=== PATIENT | male | born 1975 | race Caucasian/White ===

== ENCOUNTER 2020-11-20 12:38 | Outpatient (REF) | payer OTHER, SELFPAY ==
[2020-11-20 15:11] LABS: TSH reflex Free T4 1.49 uIU/mL (0.32-4.0)
== END 2020-11-20 12:39 | disposition home or self-care (01) ==
LOC: HO.HMGCLDS 12:38
PROVIDERS: PCP Nurse Practitioner Family; Visit Provider Nurse Practitioner Family
DX: E03.9 Hypothyroidism, unspecified (principal)
CPT/HCPCS: 36415; 84443

== ENCOUNTER 2021-01-31 11:22 | Outpatient (REF) | payer OTHER, SELFPAY ==
--- NOTE | ~2021-01-31 | XR_ITS ---
EXAMINATION: XR LUMBOSACRAL SPINE CLINICAL INFORMATION: Lower back pain. COMPARISON: Lumbar spine radiographs dated 02/15/2012. TECHNIQUE: 3 views of the lumbosacral spine. FINDINGS: The lumbar lordosis is maintained. Grade 1 anterolisthesis of L5 on S1 with chronic bilateral pars defects, unchanged. No loss of vertebral body or intervertebral disc height. No lytic or blastic osseous lesion. Unremarkable prevertebral soft tissues. XR/XR lumbar spine 2-3V IMPRESSION: Grade 1 anterolisthesis of L5 on S1 with chronic bilateral pars defects.
== END 2021-01-31 11:23 | disposition home or self-care (01) ==
LOC: HO.XRAY 11:22
PROVIDERS: PCP Nurse Practitioner Family; Visit Provider Nurse Practitioner Family
DX: M54.5 Low back pain (principal)
CPT/HCPCS: 72100

== ENCOUNTER 2021-03-24 13:00 | Outpatient (RCR) | payer OTHER, SELFPAY ==
--- NOTE | 2021-03-09 12:46 | MHC.PT.EP ---
[facility] [place] Office [place] Office [place] Office [address] [phone] F: [phone] F: [phone] F: [phone] F: [phone] Physical Therapy Plan of Care Date of Evaluation: Date of Surgery: n/a Diagnosis: low back pain Assessment: Patient is a 46 year old R handed male who presents with s/s consistent with low back pain. 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 Patient past medical history includes is fairly unremarkable. Current impairments include pain, ROM, flexibility, strength, activity tolerance and functional mobility. Functional limitations include decreased ability to walk, stand, transfer, negotiate stairs, and perform weight bearing activities.. Patient is motivated with good rehab potential. Skilled PT will address impairments and functional limitations in order to achieve goals. Frequency and Duration: The patient will be seen 1x/week for 5 weeks Short Term Goals: I with HEP - 2 weeks Max pain with driving /10 - 3 weeks Retirement Goals: Able to walk/sit/drive pain free - 5 weeks Oswestry 4% or less - 5 weeks Hip strength 4+/5 grossly, 90/90 lacking 20 or less b/l - 5 weeks Treatment Plan: Modalities to reduce pain, spasms and effusion. Manual therapy to restore motion and function. Therapeutic exercise to improve strength and flexibility. Neuromuscular re-education for posture and balance. Therapeutic activities to return to functional activities of daily living. Electronically signed by: Mahendra Patrick PT Please sign and return to therapist. Thank you for your referral.
--- NOTE | 2021-07-08 10:43 | MHC.PT.DC ---
[facility] [place] Office [place] Office [place] Office [address] 140 [facility] [phone] F: [phone] F: [phone] F: [phone] F: [phone] Physical Therapy Discharge Report Diagnosis: low back pain Date of Surgery: n/a Date of Evaluation: 03/09/21 Date of Discharge: 03/24/21 Treatments to Date: 2 Cancellations to Date: 0 No Shows to Date: Discharge Status: Patient Elected to Stop Discharge Summary: Pt elected not to continue with skilled PT. Electronically signed by: Mahendra [place] PT Please sign and return to therapist. Thank you for your referral.
== END 2021-07-08 10:44 | disposition home or self-care (01) ==
LOC: HO.PTCHIC 13:00
PROVIDERS: PCP Nurse Practitioner Family; Visit Provider Nurse Practitioner Family
DX: M54.50 Low back pain, unspecified (principal)
CPT/HCPCS: 97110; 97140; 97161

== ENCOUNTER 2021-04-06 19:11 | Outpatient (REF) | payer OTHER, SELFPAY ==
--- NOTE | ~2021-04-06 | MR_ITS ---
EXAMINATION: MR HIP WITHOUT CONTRAST, LEFT CLINICAL INFORMATION: Left hip pain radiating to gluteus. Lower back pain. COMPARISON: None TECHNIQUE: MRI of the left hip was obtained using routine sequences on a high-field magnet. FINDINGS: ACETABULAR LABRUM: Linear fluid signal extending through the base of the anterosuperior labrum (sagittal image 15/26), consistent with nondisplaced undersurface tearing. Mild fraying through the articular surface of the lateral labrum. ARTICULAR CARTILAGE/BONE: Prominent articular cartilage thinning at the superior joint space with areas of probable full-thickness loss and fissuring as well as underlying acetabular subchondral cystic change. Marginal osteophytes. No stress reaction, fracture, or avascular necrosis. The acetabular depth is within normal limits. MUSCLES/TENDONS: Intact. JOINT FLUID/BURSA: Within normal limits. INTRAPELVIC STRUCTURES: Unremarkable. MR/MR hip LT wo con IMPRESSION: 1. Nondisplaced undersurface tear of the anterosuperior labrum. Irregular fraying along the articular surface of the lateral labrum. 2. Mild to moderate left hip osteoarthritis.
== END 2021-04-06 19:12 | disposition home or self-care (01) ==
LOC: HO.MRI 19:11
PROVIDERS: Visit Provider Nurse Practitioner Family
DX: M25.552 Pain in left hip (principal)
CPT/HCPCS: 73721

== ENCOUNTER 2021-05-12 13:38 | Outpatient (REF) | payer OTHER, SELFPAY | END 2021-05-12 13:39 | disposition home or self-care (01) | LOC: HO.HMGCLDS 13:38 | PROVIDERS: Visit Provider Internal Medicine | DX: Z20.822 Contact with and (suspected) exposure to COVID-19 (principal) | CPT/HCPCS: C9803; U0003; U0005 ==

== ENCOUNTER 2021-07-25 08:09 | Outpatient (REF) | payer OTHER, SELFPAY | END 2021-07-25 08:10 | disposition home or self-care (01) | LOC: HO.HOSX 08:09 | PROVIDERS: Visit Provider Orthopaedic Surgery | DX: Z13.89 Encounter for screening for other disorder (principal) ==

== ENCOUNTER 2022-10-30 09:58 | Outpatient (REF) | payer OTHER, SELFPAY ==
[2022-10-30 11:06] LABS: MANUAL DIFF FLAG NO
[2022-10-30 11:15] LABS: Appearance Urine Clear; Color Urine Yellow; Glucose Urine UA Negative (Negative); Leukocyte Esterase Urine Negative (Negative); Nitrite Urine Negative (Negative); PH 6.5 (5.0-9.0); Urine Blood Negative (Negative); Urine Ketones Negative (Negative); Urine Protein Negative (Neg-Trace)
[2022-10-30 11:20] LABS: Basophils Absolute Auto 0.1 X10*3/uL (0.0-0.2); Basophils Percent Auto 1.4 % (0-2); Eosinophils Absolute Auto 0.2 X10*3/uL (0.0-0.4); Eosinophils Percent Auto 3.8 % (0-4); Hematocrit 45.7 % (42.0-52.0); Hemoglobin 15.9 g/dl (14.0-18.0); Imm Gran Abs Auto 0.04 X10*3/uL (0.00-0.03); Imm Gran Pct Auto 0.7 % (0.0-0.4); Lymphocytes Absolute Auto 2.3 X10*3/uL (1.2-4.9); Lymphocytes Percent Auto 39.9 % (20-40); Mean Corpuscular HGB Conc 34.8 g/dl (31.0-36.0); Mean Corpuscular Hemoglobin 31.1 pg (27.0-33.0); Mean Corpuscular Volume 89.3 fL (80.0-98.0); Mean Platelet Volume 9.5 fL (9.4-12.4); Monocytes Absolute Auto 0.5 X10*3/uL (0.1-1.2); Monocytes Percent Auto 7.7 % (2-11); Neutrophils Absolute Auto 2.7 x10*3/uL (2.0-8.3); Neutrophils Percent Auto 46.5 % (45-73); Platelet Count 274 X10*3/uL (160-400); Red Blood Count 5.12 X10*6/uL (4.60-5.80); Red Cell Distribution Width 11.5 % (11.0-16.0); White Blood Count 5.8 X10*3/uL (4.8-10.8)
[2022-10-30 11:51] LABS: Alanine Aminotransferase 37 U/L (0-40); Albumin Level 4.3 g/dL (3.5-5.0); Alkaline Phosphatase 97 U/L (39-117); Anion Gap 12 (12-20); Aspartate Amino Transferase 27 U/L (5-37); Bilirubin Total 0.5 mg/dL (0.0-1.0); Blood Urea Nitrogen 13 mg/dL (9-16); Calcium 9.7 mg/dL (8.4-10.2); Carbon Dioxide 30 mmol/L (22-29); Chloride 104 mmol/L (96-108); Cholesterol 194 mg/dL; Estimated Glomerular Filt Rate > 60; Glucose Fasting 87 mg/dL (60-99); HDL Cholesterol 38 mg/dL; LDL Cholesterol Calculated 136 mg/dl; Sodium 142 mmol/L (135-145); Total Protein 7.7 g/dL (6.5-8.0); Triglycerides 103 mg/dL
== END 2022-10-30 09:59 | disposition home or self-care (01) ==
LOC: HO.HMGCLDS 09:58
PROVIDERS: PCP Nurse Practitioner Family; Visit Provider Nurse Practitioner Family
DX: Z00.00 Encounter for general adult medical examination without abnormal findings (principal); E03.9 Hypothyroidism, unspecified
CPT/HCPCS: 36415; 80053; 80061; 81003; 84443; 85025

== ENCOUNTER 2023-01-04 15:33 | Emergency (ER) | payer OTHER, SELFPAY ==
--- NOTE | ~2023-01-04 | XR_ITS ---
EXAMINATION: XR CHEST 2 VIEW CLINICAL INFORMATION: Chest pain COMPARISON: None TECHNIQUE: PA and lateral views of the chest obtained. FINDINGS: The lungs are clear. There are no pleural effusions. The cardiomediastinal silhouette is normal. No rib fracture or pneumothorax is detected. XR/XR chest 2V IMPRESSION: No acute cardiopulmonary disease.
--- NOTE | 2023-01-04 15:35 | ECG_ITS ---
Test Reason : PAIN Blood Pressure : / mmHG Vent. Rate : 076 BPM Atrial Rate : 076 BPM P-R Int : 132 ms QRS Dur : 082 ms QT Int : 362 ms P-R-T Axes : 073 040 037 degrees QTc Int : 407 ms Normal sinus rhythm Possible Left atrial enlargement Borderline ECG No previous ECGs available Referred By: Kaiden Campbell Electronically Signed By:KORY OKEEFE
--- NOTE | 2023-01-04 15:46 | ED_ITS ---
HPI - General Adult General Chief complaint: Chest Pain Stated complaint: chest pain Time Seen by Provider: 01/04/23 16:08 Source: patient Mode of arrival: ambulatory Limitations: no limitations History of Present Illness HPI narrative: Patient is a 47-year-old male presents emergency department for evaluation of c hest pain. Onset of pain was approximately 2 days ago while he was sitting down. It is localized to the left anterior chest without radiation. He is unable to describe the quality of the pain. He does state that it is exacerbated with particular movements of the left arm as well as his torso. He has had some improvement in his symptoms with the use of Motrin. He denies history of similar pain in the past. Denies fevers, chills, URI symptoms, cough, shortness of breath, dizziness, neck pain, nausea, vomiting, abdominal pain, numbness or tingling of the extremities. Denies any personal history of DVT/PE, history of malignancy, recent lower extremity redness/pain/swelling, family history of [place] or sudden cardiac at a young age. Related Data Previous Rx's Medication Instructions Recorded levothyroxine 112 mcg tablet 112 mcg PO DAILY #90 tabs 12/01/22 Allergies Allergy/AdvReac Type Severity Reaction Status Date / Time seafood Allergy Unknown Angioedema Verified 01/04/23 15:47 apple Allergy Angioedema Verified 01/04/23 15:47 avocado Allergy Angioedema Verified 01/04/23 15:47 Review of Systems Review of Systems: Constitutional : No Weight loss, No Fever, No Chills ENT/Mouth :? No sore throat, No Rhinorrhea Eyes: No Eye Pain, No Swelling Cardiovascular : pos Chest Pain, no SOB, no Dyspnea on Exertion, No Orthopnea, No Edema, No Palpitations Respiratory : No Cough, No Sputum Gastrointestinal : No Nausea, No Vomiting, No Diarrhea, No abdominal Pain, No Hematochezia, No Melena Genitourinary : No Dysuria, No Urinary Frequency Musculoskeletal : No joint pain, No Myalgias, No Joint Swelling Skin : No Skin Lesions, No rash Neuro : No Weakness, No Numbness, No Dizziness, No Headache Psych : No Anxiety/Panic, No Depression Heme/Lymph: No Bruising, No Lymphadenopathy Endocrine : No Polyuria, No Polydipsia Yes all other systems are reviewed and are negative [facility] Past Medical History Attestation statement: The following information was validated with the patient. Source: old records reviewed Surgical History History of vasectomy Family History Family History Father Diabetes mellitus Mother Asthma Brother No problems noted. Brother No problems noted. Brother No problems noted. Brother No problems noted. Brother No problems noted. Brother No problems noted. Brother No problems noted. Brother Hyperthyroidism Sister No problems noted. Sister No problems noted. Sister No problems noted. Sister No problems noted. Daughter No problems noted. Daughter Hyperthyroidism Social History Social History Housing: House Patient Tobacco Use Status: Never used Tobacco e-Cigarette/Vaping Use: Never Used Second Hand Smoke Exposure: No Advance Directives: No Advance Directives Information Provided: Yes service: No Current occupational status: employed Current occupation: [employer] Current occupational exposures/hazards: No Cognitive needs: No Hearing needs: No Vision needs: No Physical Exam ED Vital Signs: Vital Signs - 24 hr 01/04/23 15:47 Temperature 98 F Pulse Rate 82 Respiratory Rate 85 H Blood Pressure 133/60 Pulse Oximetry 98 BMI result Body Mass Index 24.3 Appearance: Alert.?Oriented to person, place and time. No acute distress.?Normal affect. Eyes: Pupils equal, round and reactive to light.? ENT: Pharynx normal.?? Neck: Normal inspection.? Neck supple.?? CVS: Heart sounds normal. Normal heart rate and rhythm.? Pulses normal.?? Respiratory: No respiratory distress.? Lung sounds clear to auscultation bilaterally?? Abdomen: Soft and non-tender. Normoactive bowel sounds. Skin: Skin warm and dry.? Normal skin color.? Extremities: No lower extremity edema.? No calf ttp? Neuro: Moves all extremities spontaneously. Sensation intact bilaterally. No fo rashard neuro deficits. Ambulates with normal steady gait. Course Course Course Narrative: RME- 47 year old male presents for evaluation of chest pain. Symptoms sarted 2.5 days ago. Denies respiratory symptoms. EKG completed. Plan for labs. Pain is reproducible with movement Reevaluation(s) Reevaluation #1: CBC reveals no leukocytosis or anemia. CMP is overall unremarkable. Troponin <2.7, and EKG revealing normal sinus rhythm without acute ischemic findings, given duration of symptoms, unlikely to be ACS at this time given the aforementioned findings. Pain is reproducible, likely muscular in nature. Discussed plan of care for discharge home, outpatient follow-up with primary care provider within 1-3 days, use of acetaminophen/ibuprofen as needed for pain. Discussed worrisome signs and symptoms that would warrant re-evaluation in the emergency department. All questions were answered. Stable for discharge. Time: 17:20 Medical Decision Making Medical Decision Making MDM Narrative: Patient is a 47-year-old male past medical history of hypothyroidism presenting to emergency department for evaluation of chest pain. At the time my examination he is overall well-appearing, nontoxic, afebrile. Patient had respiratory rate entered in error, no tachypnea, no apparent respiratory distre ss. Physical examination is benign aside from mild tenderness upon palpation of the left anterior chest wall. PERC negative unlikely pulmonary embolism. Will obtain CBC to evaluate for leukocytosis/ anemia, CMP and lipase to evaluate for abnormal electrolytes /abnormal renal function/ abnormal hepatic/biliary function, EKG and troponin to evaluate for ischemia/ACS. Chest x-ray to evaluate for consolidation/ infiltrate/ mass/ pulmonary congestion. He declines the need for any pain medication at this time. Differential Diagnosis Differential Diagnoses: The differential diagnosis associated with the presentation includes (ACS, pulmonary embolism, pneumonia, pneumothorax, muscular strain, gastritis, GERD) Admission/Observation Consideration of admission/observation: Escalation of care including admission/observation considered (I considered admission for chest pain, see course narrative for further detail) Lab Data [facility] Lab Attestation statement: I reviewed the patient's lab results. (See course narrative for further detail) 01/04/23 16:14 01/04/23 16:14 Labs: Lab Results 01/04/23 01/04/23 01/04/23 Range/Units 16:14 16:14 16:14 WBC 7.4 (4.8-10.8) X10*3/uL RBC 4.90 (4.60-5.80) X10*6/uL Hgb 15.1 (14.0-18.0) g/dl Hct 42.6 (42.0-52.0) % MCV 86.9 (80.0-98.0) fL MCH 30.8 (27.0-33.0) pg MCHC 35.4 (31.0-36.0) g/dl RDW 11.4 (11.0-16.0) % Plt Count 259 (160-400) X10*3/uL MPV 9.3 L (9.4-12.4) fL Immature Gran % (Auto) 0.3 (0.0-0.4) % Neut % (Auto) 64.7 (45-73) % Lymph % (Auto) 22.9 (20-40) % [place] % (Auto) 6.7 (2-11) % Eos % (Auto) 4.7 H (0-4) % Baso % (Auto) 0.7 (0-2) % Lymph # (Auto) 1.7 (1.2-4.9) X10*3/uL [place] # (Auto) 0.5 (0.1-1.2) X10*3/uL Eos # (Auto) 0.4 (0.0-0.4) X10*3/uL Baso # (Auto) 0.1 (0.0-0.2) X10*3/uL Abs Immat Gran (auto) 0.02 (0.00-0.03) X10*3/uL Absolute Neuts (auto) 4.8 (2.0-8.3) x10*3/uL Absolute Nucleated RBC 0.000 (0.0-0.012) X10*3/uL Nucleated RBC % (auto) 0.0 (0.0-0.2) /100WBC PT 12.0 (11.1-13.3) SEC INR 1.0 (0.9-1.1) APTT 29.4 (26.0-36.4) SEC Sodium 139 (135-145) mmol/L Potassium 3.7 (3.3-5.1) mmol/L Chloride 108 (96-108) mmol/L Carbon Dioxide 26 (22-29) mmol/L Anion Gap 9 L (12-20) BUN 16 (9-16) mg/dL Creatinine 1.00 (0.5-1.4) mg/dL Estim Creat Clear Calc 92.3 Estimated GFR > 60 Random Glucose 113 (60-115) mg/dL Calcium 9.2 (8.4-10.2) mg/dL Total Bilirubin 0.6 (0.0-1.0) mg/dL AST 24 (5-37) U/L ALT 35 (0-40) U/L Alkaline Phosphatase 86 (39-117) U/L Troponin I High Sens (<3.5-35.0) ng/L Total Protein 7.4 (6.5-8.0) g/dL Albumin 4.1 (3.5-5.0) g/dL Lipase 14 (8-78) U/L 01/04/23 Range/Units 16:14 WBC (4.8-10.8) X10*3/uL RBC (4.60-5.80) X10*6/uL Hgb (14.0-18.0) g/dl Hct (42.0-52.0) % MCV (80.0-98.0) fL MCH (27.0-33.0) pg MCHC (31.0-36.0) g/dl RDW (11.0-16.0) % Plt Count (160-400) X10*3/uL MPV (9.4-12.4) fL Immature Gran % (Auto) (0.0-0.4) % Neut % (Auto) (45-73) % Lymph % (Auto) (20-40) % [place] % (Auto) (2-11) % Eos % (Auto) (0-4) % Baso % (Auto) (0-2) % Lymph # (Auto) (1.2-4.9) X10*3/uL [place] # (Auto) (0.1-1.2) X10*3/uL Eos # (Auto) (0.0-0.4) X10*3/uL Baso # (Auto) (0.0-0.2) X10*3/uL Abs Immat Gran (auto) (0.00-0.03) X10*3/uL Absolute Neuts (auto) (2.0-8.3) x10*3/uL Absolute Nucleated RBC (0.0-0.012) X10*3/uL Nucleated RBC % (auto) (0.0-0.2) /100WBC PT (11.1-13.3) SEC INR (0.9-1.1) APTT (26.0-36.4) SEC Sodium (135-145) mmol/L Potassium (3.3-5.1) mmol/L Chloride (96-108) mmol/L Carbon Dioxide (22-29) mmol/L Anion Gap (12-20) BUN (9-16) mg/dL Creatinine (0.5-1.4) mg/dL Estim Creat Clear Calc Estimated GFR Random Glucose (60-115) mg/dL Calcium (8.4-10.2) mg/dL Total Bilirubin (0.0-1.0) mg/dL AST (5-37) U/L ALT (0-40) U/L Alkaline Phosphatase (39-117) U/L Troponin I High Sens < 2.7 (<3.5-35.0) ng/L Total Protein (6.5-8.0) g/dL Albumin (3.5-5.0) g/dL Lipase (8-78) U/L Independent Interpretation I performed an independent interpretation of an: EKG and Plain X-Ray (I have personally interpreted chest x-ray and agree with radiologist impression, no evidence of pneumonia, pneumothorax, pulmonary congestion) Interpretation: Rate: 76 Rhythm:? Normal sinus rhythm [place]:? Normal Normal P waves.? Normal RADHIKA.?? Normal QRS complex.?? ST T wave :??No ST elevation, no ST depression, no T-wave inversion qTC: 407 prior studies:? None available for review The study has been interpreted contemporaneously by me. Radiology Impression Discussion of test interpretation with radiology: I have reviewed the radiologist's reading. Radiologist Impression: XR/XR chest 2V IMPRESSION: No acute cardiopulmonary disease. ? Discharge Plan Discharge Clinical Impression: Chest pain Patient Disposition: Home, Self-Care Instructions: Chest Pain (ED) Additional Instructions: Your blood work, chest x-ray, and EKG today are overall normal. This is very reassuring. Please contact your primary care provider to arrange for a follow- up visit in 1-3 days. You may return back to emergency department any new or worsening symptoms or concerns. You can take ibuprofen 200 mg, 3 tablets (600mg) every 6-8 hours as needed for pain, in addition to Tylenol 500 mg, 2 tablets (1,000mg) every 4-6 hours as needed for pain, but not to exceed 3 doses daily (3,000mg).? Prescriptions: No Action levothyroxine 112 mcg tablet 112 mcg PO DAILY Qty: 90 1RF Referrals: Ricky To, TABLET TESTER-BC [Primary Care Provider] -
[2023-01-04 15:47] VITALS: BP 133/60; PULSE 82; RESP 17; TEMP 36.6; O2SAT 98; BMI 24.3
[2023-01-04 16:19] LABS: MANUAL DIFF FLAG NO
[2023-01-04 16:20] LABS: Basophils Absolute Auto 0.1 X10*3/uL (0.0-0.2); Basophils Percent Auto 0.7 % (0-2); Eosinophils Absolute Auto 0.4 X10*3/uL (0.0-0.4); Eosinophils Percent Auto 4.7 % (0-4); Hematocrit 42.6 % (42.0-52.0); Hemoglobin 15.1 g/dl (14.0-18.0); Imm Gran Abs Auto 0.02 X10*3/uL (0.00-0.03); Imm Gran Pct Auto 0.3 % (0.0-0.4); Lymphocytes Absolute Auto 1.7 X10*3/uL (1.2-4.9); Lymphocytes Percent Auto 22.9 % (20-40); Mean Corpuscular HGB Conc 35.4 g/dl (31.0-36.0); Mean Corpuscular Hemoglobin 30.8 pg (27.0-33.0); Mean Corpuscular Volume 86.9 fL (80.0-98.0); Mean Platelet Volume 9.3 fL (9.4-12.4); Monocytes Absolute Auto 0.5 X10*3/uL (0.1-1.2); Monocytes Percent Auto 6.7 % (2-11); Neutrophils Absolute Auto 4.8 x10*3/uL (2.0-8.3); Neutrophils Percent Auto 64.7 % (45-73); Platelet Count 259 X10*3/uL (160-400); Red Cell Distribution Width 11.4 % (11.0-16.0); White Blood Count 7.4 X10*3/uL (4.8-10.8)
[2023-01-04 16:38] LABS: Alanine Aminotransferase 35 U/L (0-40); Albumin Level 4.1 g/dL (3.5-5.0); Alkaline Phosphatase 86 U/L (39-117); Anion Gap 9 (12-20); Aspartate Amino Transferase 24 U/L (5-37); Bilirubin Total 0.6 mg/dL (0.0-1.0); Blood Urea Nitrogen 16 mg/dL (9-16); Calcium 9.2 mg/dL (8.4-10.2); Carbon Dioxide 26 mmol/L (22-29); Chloride 108 mmol/L (96-108); Creatinine Clr Calc Pharmacy 92.3; Estimated Glomerular Filt Rate > 60; Glucose Random 113 mg/dL (60-115); Lipase 14 U/L (8-78); Potassium 3.7 mmol/L (3.3-5.1); Sodium 139 mmol/L (135-145); Total Protein 7.4 g/dL (6.5-8.0)
[2023-01-04 16:45] LABS: Partial Thromboplastin Time 29.4 SEC (26.0-36.4)
[2023-01-04 16:50] LABS: Troponin-I High Sensitivity < 2.7 ng/L (<3.5-35.0)
== END 2023-01-04 19:11 | disposition home or self-care (01) ==
PROVIDERS: Physician Assistant; Emergency Provider Emergency Medicine; PCP Nurse Practitioner Family
DX: R07.9 Chest pain, unspecified (principal)
CPT/HCPCS: 36415; 71046; 80053; 83690; 84484; 85025; 85610; 85730; 93005; 99283

== ENCOUNTER 2023-10-09 11:50 | Outpatient (AMB) | payer OTHER, SELFPAY ==
--- NOTE | 2023-10-09 12:00 | A.OFFVIS_ITS ---
Vital Signs 10/09/23 12:03 Height 5 ft 9 in Weight 171 lb BMI 25.2 BP 119/57 L Blood Pressure Location Lt brachial Position Sitting Pulse 70 Intake Visit Reasons: Colonoscopy Screening Intake Note: Patient new consult for 1st pre colonoscopy screening. Patient denies any GI issues. 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 Accompanied by: Self / Same As Patient Allergies seafood Allergy (Unknown, Verified 10/09/23 11:59) Angioedema apple Allergy (Verified 10/09/23 11:59) Angioedema avocado Allergy (Verified 10/09/23 11:59) Angioedema Medication List - Last Reconciled 10/09/23 by Marleny Wilburn PA-C levothyroxine 112 mcg PO DAILY HPI Comments Details: A very pleasant 48-year-old male referred for index screening colonoscopy- He has no GI, He has no known family history of GI cancer Normal bowel Appetite is good No respiratory or cardiac issues Arthritis-moringa- No nausea, vomiting, abdominal pain, hematemesis, hematochezia fever chills PFSH Surgical History History of vasectomy Family History Father Diabetes mellitus Mother Asthma Brother No problems noted. Brother No problems noted. Brother No problems noted. Brother No problems noted. Brother No problems noted. Brother No problems noted. Brother No problems noted. Brother Hyperthyroidism Sister No problems noted. Sister No problems noted. Sister No problems noted. Sister No problems noted. Daughter No problems noted. Daughter Hyperthyroidism Social History Housing: House Patient Tobacco Use Status: Never used Tobacco e-Cigarette/Vaping Use: Never Used Second Hand Smoke Exposure: No service: No Current occupational status: employed Current occupation: [employer] Current occupational exposures/hazards: No Cognitive needs: No Hearing needs: No Vision needs: No Review of Systems Const Details: LB and hip pain-arthritis- All systems reviewed & are unremarkable except as noted in HPI and below Card Denies chest pain and Denies dyspnea Resp Denies dyspnea GI Denies abdominal pain, Denies change in bowel habits and Denies heartburn Musc Reports arthralgias (Hip, ) Physical Exam Vital Signs: Last Vital Signs Pulse 70 10/09/23 12:03 BP 119/57 L 10/09/23 12:03 BMI result Body Mass Index 25.2 Const General: cooperative, healthy appearing, comfortable, no acute distress and well groomed Orientation/consciousness: patient oriented x3 Limitations: no limitations Eyes Sclerae: sclerae normal Resp Effort & Inspection: normal respiratory effort and able to speak in complete sentences Auscultation: clear to auscultation bilaterally, no rales, no rhonchi and no wheezes Cardio Rate: regular rate Rhythm: regular rhythm Heart sounds: S1 normal heart sound present and S2 normal heart sound present GI Palpation (GI): Soft to palpation and nontender Auscultation: normal bowel sounds Skin General skin exam: no rashes or lesions noted Neuro General: patient oriented x3 Extrem General: Yes full ROM Psych Appearance: grossly normal Mental Status: mental status grossly normal Speech and movement: Normal speech and movement present Affect: normal affect Attitude: cooperative Thought process: Normal thought process present Thought content: Normal thought content present Insight: Good insight present (Psych) Judgement: Good judgement present (Psych) Assessment & Plan Assessment & Plan (1) Screening for colon cancer: Comment: BMI:25.3kg/m?-discuss colonoscopy versus alternatives to include Cologuard Approximate 13% false positive is results Code(s): Z12.11 - Encounter for screening for malignant neoplasm of colon Category: Medical Plan: Cologuard if positive recommend colonoscopy If negative repeat in 3 years Plan Cologuard Orders: Orders Colonoscopy - GI Use Only Today Z12.11 - Encounter for screening for malignant neoplasm of colon Referrals Cologuard Test Z12.11 - Encounter for screening for malignant neoplasm of colon Medications: New bisacodyl (Dulcolax (bisacodyl)) Day before procedure @ 12 noon Take 4 tablets by mouth followed by large glass of water 20 mg (4 x 5 mg) PO ONCE 1 day PRN 4 tabs 0RF colonoscopy prep Z12.11 - Encounter for screening for malignant neoplasm of colon polyethylene glycol 3350 (Miralax) Take as directed by mouth the day before your procedure. 238 grams PO ONCE 1 day PRN 238 grams 0RF laxative effect Patient Instructions: Very pleasant 48-year-old male no GI concerns, no family history of GI concerns as well Reviewed indications, rare risks and for Index screening colonoscopy- discussed- alternatives as he requested-he opts for cologuard-if positive recommend colonoscopy Aware approx-13 % false positive- If he were to reconsider gold standard colonoscopy he will keep us informed Encouraged to call with questions or concerns Coding Level of Care Code New Pt Level 3 (05276) Diagnoses Screening for colon cancer Z12.11 Time Spent (min) 30
[2023-10-09 12:03] VITALS: BP 119/57; PULSE 70; BMI 25.2
== END 2023-10-09 13:18 | disposition home or self-care (01) ==
PROVIDERS: PCP Nurse Practitioner Family; Visit Provider Physician Assistant
DX: Z12.11 Encounter for screening for malignant neoplasm of colon (principal); Z01.818 Encounter for other preprocedural examination
CPT/HCPCS: 99203

== ENCOUNTER → 2023-10-09 11:50 | Outpatient (BNVA) | payer OTHER, SELFPAY | PROVIDERS: PCP Nurse Practitioner Family; Visit Provider Physician Assistant ==

== ENCOUNTER 2023-12-24 10:32 | Outpatient (REF) | payer OTHER, SELFPAY ==
[2023-12-24 13:05] LABS: MANUAL DIFF FLAG NO
[2023-12-24 13:15] LABS: Basophils Absolute Auto 0.1 X10*3/uL (0.0-0.2); Basophils Percent Auto 0.9 % (0-2); Eosinophils Absolute Auto 0.4 X10*3/uL (0.0-0.4); Eosinophils Percent Auto 6.9 % (0-4); Hematocrit 44.8 % (42.0-52.0); Hemoglobin 15.3 g/dl (14.0-18.0); Imm Gran Abs Auto 0.03 X10*3/uL (0.00-0.03); Imm Gran Pct Auto 0.5 % (0.0-0.4); Lymphocytes Absolute Auto 2.2 X10*3/uL (1.2-4.9); Lymphocytes Percent Auto 39.5 % (20-40); Mean Corpuscular HGB Conc 34.2 g/dl (31.0-36.0); Mean Corpuscular Hemoglobin 30.6 pg (27.0-33.0); Mean Corpuscular Volume 89.6 fL (80.0-98.0); Mean Platelet Volume 9.9 fL (9.4-12.4); Monocytes Absolute Auto 0.5 X10*3/uL (0.1-1.2); Neutrophils Absolute Auto 2.5 x10*3/uL (2.0-8.3); Neutrophils Percent Auto 43.2 % (45-73); Platelet Count 270 X10*3/uL (160-400); Red Cell Distribution Width 11.8 % (11.0-16.0); White Blood Count 5.7 X10*3/uL (4.8-10.8)
[2023-12-24 13:35] LABS: Alanine Aminotransferase 36 U/L (0-40); Albumin Level 4.3 g/dL (3.5-5.0); Alkaline Phosphatase 89 U/L (39-117); Anion Gap 10 (12-20); Aspartate Amino Transferase 28 U/L (5-37); Bilirubin Total 0.5 mg/dL (0.0-1.0); Blood Urea Nitrogen 10 mg/dL (9-16); Calcium 8.9 mg/dL (8.4-10.2); Carbon Dioxide 29 mmol/L (22-29); Chloride 106 mmol/L (96-108); Cholesterol 220 mg/dL (<200); Estimated Glomerular Filt Rate > 60; Glucose Fasting 95 mg/dL (60-99); HDL Cholesterol 52 mg/dL (>40); LDL Cholesterol Calculated 154 mg/dL (<100); Potassium 4.3 mmol/L (3.3-5.1); Sodium 141 mmol/L (135-145); Total Protein 7.3 g/dL (6.5-8.0); Triglycerides 71 mg/dL (<150)
[2023-12-24 13:44] LABS: TSH reflex Free T4 0.68 uIU/mL (0.32-4.0)
== END 2023-12-24 10:33 | disposition home or self-care (01) ==
LOC: HO.HMGCLDS 10:32
PROVIDERS: PCP Nurse Practitioner Family; Visit Provider Nurse Practitioner Family
DX: Z00.00 Encounter for general adult medical examination without abnormal findings (principal); E03.9 Hypothyroidism, unspecified
CPT/HCPCS: 36415; 80053; 80061; 84443; 85025

== ENCOUNTER 2023-12-27 09:37 | Outpatient (AMB) | payer OTHER, SELFPAY ==
[2023-12-27 09:40] VITALS: BP 122/60; PULSE 58; O2SAT 98; BMI 23.8
--- NOTE | 2023-12-27 09:40 | MHC.PC.OV ---
Vital Signs 12/27/23 09:40 Height 5 ft 9 in Weight 161 lb BMI 23.8 BP 122/60 Blood Pressure Location Rt brachial Position Sitting Pulse 58 Pulse Source Pulse Oximeter Pulse Oximetry (%) 98 Oxygen Delivery Method Room Air Intake Visit Reasons: Followup meds Allergies seafood Allergy (Unknown, Verified 12/27/23 10:06) Angioedema apple Allergy (Verified 12/27/23 10:06) Angioedema avocado Allergy (Verified 12/27/23 10:06) Angioedema Medication List - Last Reconciled 12/27/23 by VALENTIN Segura atorvastatin 10 mg PO BEDTIME levothyroxine 112 mcg PO DAILY Tobacco use date assessed: 12/27/23 Dental Screening Dental Screen Date: 12/27/23 Did you have a dental visit in the last 12 months?: No Did you have a dental problem in the last 6 months where you did not have access to dental care?: No Was dental information given to patient?: Patient has dentist HPI Followup meds HPI Details Dyslipidemia: Pt's last cholesterol level was elevated. Pt is unsure if he would like to start a med, will send and pt will think about this and most likely start it. Encouraged pt to work on his diet. Will repeat labs in 2 months. Pt has a hx of hypothyroid. He is taking levothyroxine 112mcg. Denies fever, chills, constipation/diarrhea, and fatigue/hyperactivity. [facility] Surgical History History of vasectomy Family History Father Diabetes mellitus Mother Asthma Brother No problems noted. Brother No problems noted. Brother No problems noted. Brother No problems noted. Brother No problems noted. Brother No problems noted. Brother No problems noted. Brother Hyperthyroidism Sister No problems noted. Sister No problems noted. Sister No problems noted. Sister No problems noted. Daughter No problems noted. Daughter Hyperthyroidism Social History Housing: House Patient Tobacco Use Status: Never used Tobacco e-Cigarette/Vaping Use: Never Used Second Hand Smoke Exposure: No service: No Current occupational status: employed Current occupation: [employer] Current occupational exposures/hazards: No Cognitive needs: No Hearing needs: No Vision needs: No Questionnaire PHQ-9 Over the last 2 weeks, how often have you been bothered by any of the following problems? 1. Little interest or pleasure in doing things: not at all 2. Feeling down, depressed, or hopeless: not at all 3. Trouble falling or staying asleep, or sleeping too much: not at all 4. Feeling tired or having little energy: not at all 5. Poor appetite or overeating: not at all 6. Feeling bad about yourself - or that you are a failure or have let yourself or your family down: not at all 7. Trouble concentrating on things, such as reading the newspaper or watching television: not at all 8. Moving or speaking so slowly that other people could have noticed. Or the opposite - being so fidgety or restless that you have been moving around a lot more than usual: not at all 9. Thoughts that you would be better off or of hurting yourself in some way: not at all Total score: 0 Depression Screening Interpretation: Negative Depression Screening Done: Yes 74663 - PHQ-9 Billing: Yes Source: Developed by Drs. Francis Palacios, Alexandria Andre, Chintan Posey and colleagues, with an educational brooke from [employer]. Thrive Questionnaire Date Thrive assessed: 12/27/23 I am a: Patient What is your living situation today?: I have a steady place to live Within the past 12 months, did the food you bought not last and you didn't have the money to get more?: Never true Within the past 12 months, did you worry whether your food would run out before you got money to buy more?: Never true Do you have trouble paying for medicines?: No Do you have trouble getting transportation to medical appointments?: No Do you have trouble paying your heating and electricity bill?: No Do you have trouble taking care of your child, family member or friend?: No Do you have trouble with day-to-day activities such as bathing, preparing meals, shopping, managing finances, etc.?: No Are you currently unemployed and looking for a job?: No Are you interested in more education?: Yes Please select the resources that you would like help with: None Currently or been in a relationship where the following occur: No concerns reported THRIVE Score: 0 AUDIT C Alcohol Use Questionnaire (AUDIT-C) 1. How often do you have a drink containing alcohol?: Never 3. How often do you have six or more drinks on one occasion?: Never Total Score: 0 Score Reviewed/Action Taken: Yes CHAR-7 AMB Questionnaire CHAR-7 Date CHAR - 7 assessed: 12/27/23 Feeling nervous, anxious, or on edge: 0 = Not at all Not being able to stop or control worryin = Not at all Worrying too much about different things: 0 = Not at all Trouble relaxin = Not at all Being so restless that it is hard to sit still: 0 = Not at all Becoming easily annoyed or irritable: 0 = Not at all Feeling afraid as if something awful might happen: 0 = Not at all Total CHAR-7 score (0-4 normal; 5-9 mild; 10-14 moderate; 15-21 severe): 0 Source: Developed by Drs. Francis Palacios, Alexandria Andre, Chintan Posey and colleagues, with an educational brooke from [employer]. CHAR-7 Assessment Billing CHAR-7 Assessment Tool: CHAR-7 Assessment 93541 Review of Systems Const Reports as per HPI Physical exam (Primary Care) Vital Signs: Last Vital Signs Pulse 58 12/27/23 09:40 BP 122/60 12/27/23 09:40 Pulse Ox 98 12/27/23 09:40 Oxygen Delivery Method Room Air 12/27/23 09:40 BMI result Body Mass Index 23.8 Tobacco/Smoking Status: Tobacco use Status Tobacco use date assessed 12/27/23 12/27/23 09:45 Patient Tobacco Use Status Never used Tobacco 12/27/23 09:45 e-Cigarette/Vaping Use Never Used 12/27/23 09:45 PHQ-9: PHQ-9 Score PHQ-9: Total score 0 12/27/23 09:45 Depression Screening Interpretation: Negative Thrive Assessment: Date of Thrive Assessment Date Thrive assessed 12/27/23 12/27/23 09:45 Currently or been in a relationship where the following occur: No concerns reported Const General: cooperative Orientation/consciousness: patient oriented x3 Resp Effort & Inspection: normal respiratory effort Auscultation: clear to auscultation bilaterally Cardio Rate: regular rate Rhythm: regular rhythm Heart sounds: S1 normal heart sound present and S2 normal heart sound present Neuro General: patient oriented x3 Psych Appearance: grossly normal Mental Status: mental status grossly normal Speech and movement: Normal speech and movement present Affect: normal affect Attitude: cooperative Thought process: Normal thought process present Thought content: Normal thought content present Insight: Good insight present (Psych) Judgement: Good judgement present (Psych) Assessment and Plan Assessment & Plan (1) Dyslipidemia: Code(s): E78.5 - Hyperlipidemia, unspecified Plan: atorvastatin sent, pt will also work on his diet. (2) Hypothyroid: Code(s): E03.9 - Hypothyroidism, unspecified Plan: THS WNL, will cont to monitor Plan The patient agreed to the use of a pesticide use medical coordinator for this encounter. Scribed for HITESH Nunez-ONEYDA by Yaima Norwood pesticide use medical coordinator, on 12/27/2023 at 09:50 EST. Orders: Orders Comprehensive [place]. Panel Fast 2 Months E78.5 - Hyperlipidemia, unspecified Lipid Panel 2 Months E78.5 - Hyperlipidemia, unspecified Medications: New atorvastatin 10 mg PO BEDTIME 90 tabs 0RF Coding Level of Care Code Est Pt Level 3 (35089) Diagnoses Dyslipidemia E78.5 Hypothyroid E03.9 Additional Codes CHAR-7 Assessment Billing - CHAR-7 Assessment Tool: CHAR-7 Assessment [id number] ([id number])
== END 2023-12-27 10:28 | disposition home or self-care (01) ==
PROVIDERS: PCP Nurse Practitioner Family; Visit Provider Nurse Practitioner Family
DX: E78.5 Hyperlipidemia, unspecified (principal); E03.9 Hypothyroidism, unspecified
CPT/HCPCS: 81003; 99213

== ENCOUNTER 2024-08-22 12:45 | Outpatient (AMB) | payer OTHER, SELFPAY ==
[2024-08-22 13:18] VITALS: BP 118/74; PULSE 67; TEMP 37; O2SAT 97; BMI 23.6
--- NOTE | 2024-08-22 13:18 | AM.OFFWIN_ITS ---
Intake Vital Signs 08/22/24 13:18 Height 5 ft 9 in Weight 160 lb BMI 23.6 BP 118/74 Blood Pressure Location Lt brachial Position Sitting Pulse 67 Pulse Source Pulse Oximeter Temp 98.6 F Temp Source Oral Pulse Oximetry (%) 97 Oxygen Delivery Method Room Air Intake Visit Reasons: EP Covid -work note Intake Note: Pt presents to the office today for c/o an at home positive covid test on sunday and needs a work note. Patient Tobacco Use Status: Never used Tobacco Allergies seafood Allergy (Unknown, Verified 08/22/24 13:19) Angioedema apple Allergy (Verified 08/22/24 13:19) Angioedema avocado Allergy (Verified 08/22/24 13:19) Angioedema HPI EP Covid -work note HPI Details This is a 49-year-old male patient who presents to the walk-in clinic because he tested positive at home for COVID on Sunday. 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 At the time, he had mild symptoms. He states that test was positive, and he has been out of work since then. He states he feels very well today and will be returning to work next Sunday. He states that his employer is requiring a note for his absence. He denies any ongoing symptoms. [facility] Surgical History History of vasectomy Family History Father Diabetes mellitus Mother Asthma Brother No problems noted. Brother No problems noted. Brother No problems noted. Brother No problems noted. Brother No problems noted. Brother No problems noted. Brother No problems noted. Brother Hyperthyroidism Sister No problems noted. Sister No problems noted. Sister No problems noted. Sister No problems noted. Daughter No problems noted. Daughter Hyperthyroidism Social History Housing: House Patient Tobacco Use Status: Never used Tobacco e-Cigarette/Vaping Use: Never Used Second Hand Smoke Exposure: No service: No Current occupational status: employed Current occupation: [employer] Current occupational exposures/hazards: No Cognitive needs: No Hearing needs: No Vision needs: No Review of Systems Const All systems reviewed & are unremarkable except as noted in HPI and below Physical Exam Vital Signs: Last Vital Signs Temp 98.6 F 08/22/24 13:18 Pulse 67 08/22/24 13:18 BP 118/74 08/22/24 13:18 Pulse Ox 97 08/22/24 13:18 Oxygen Delivery Method Room Air 08/22/24 13:18 BMI result Body Mass Index 23.6 Const General: cooperative, healthy appearing and no acute distress HEENT Head: Yes normal to inspection Ears: hearing grossly normal bilaterally General nose exam: Normal external nose present Mouth: Normal oral and palatal mucosa present Throat: Yes posterior oropharynx normal Resp Effort & Inspection: normal respiratory effort Auscultation: clear to auscultation bilaterally Cardio Rate: regular rate Rhythm: regular rhythm Skin General skin exam: no rashes or lesions noted Psych Appearance: grossly normal Mental Status: mental status grossly normal Speech and movement: Normal speech and movement present Assessment & Plan Assessment & Plan (1) COVID-19: Code(s): U07.1 - COVID-19 Plan: Patient doing well status post COVID-19 diagnosis earlier this week. Note provided for his employer. Patient declines any other needs at this time. Encouraged to continue to rest, hydrate, and have healthy food/vitamin intake, and he can return to the clinic as needed. He verbalizes understanding and agrees to plan. Coding Level of Care Code Est Pt Level 4 (21387) Diagnoses COVID-19 U07.1
== END 2024-08-22 14:12 | disposition home or self-care (01) ==
PROVIDERS: PCP Nurse Practitioner Family; Visit Provider Nurse Practitioner Family
DX: U07.1 COVID-19 (principal)

== ENCOUNTER → 2024-08-22 12:45 | Outpatient (BNVA) | payer OTHER, SELFPAY | PROVIDERS: PCP Nurse Practitioner Family ==

== ENCOUNTER 2025-01-22 09:18 | Outpatient (REF) | payer BC, SELFPAY ==
[2025-01-22 13:19] LABS: Appearance Urine Clear; Glucose Urine UA Negative (Negative); PH 7.5 (5.0-9.0); Specific Gravity - Urine 1.020 (1.005-1.025)
[2025-01-22 13:25] LABS: MANUAL DIFF FLAG NO
[2025-01-22 13:29] LABS: Hematocrit 44.9 % (42.0-52.0); Hemoglobin 15.5 g/dl (14.0-18.0); Imm Gran Abs Auto 0.04 X10*3/uL (0.00-0.03); Imm Gran Pct Auto 0.6 % (0.0-0.4); Lymphocytes Absolute Auto 1.9 X10*3/uL (1.2-4.9); Mean Corpuscular HGB Conc 34.5 g/dl (31.0-36.0); Mean Corpuscular Hemoglobin 30.8 pg (27.0-33.0); Mean Corpuscular Volume 89.1 fL (80.0-98.0); NRBC Abs Auto 0.000 X10*3/uL (0.0-0.012); NRBC Pct Auto 0.0 /100WBC (0.0-0.2); Platelet Count 241 X10*3/uL (160-400); Red Blood Count 5.04 X10*6/uL (4.60-5.80); White Blood Count 7.1 X10*3/uL (4.8-10.8)
[2025-01-22 14:09] LABS: Alanine Aminotransferase 48 U/L (0-40); Albumin Level 4.7 g/dL (3.5-5.0); Alkaline Phosphatase 81 U/L (39-117); Anion Gap 11 (12-20); Aspartate Amino Transferase 32 U/L (5-37); Blood Urea Nitrogen 14 mg/dL (9-16); Calcium 9.1 mg/dL (8.4-10.2); Carbon Dioxide 28 mmol/L (22-29); Chloride 106 mmol/L (96-108); Cholesterol 156 mg/dL (<200); Estimated Glomerular Filt Rate > 60; HDL Cholesterol 49 mg/dL (>40); Potassium 3.9 mmol/L (3.3-5.1); Sodium 141 mmol/L (135-145); Total Protein 7.6 g/dL (6.5-8.0); Triglycerides 75 mg/dL (<150)
== END 2025-01-22 09:19 | disposition home or self-care (01) ==
LOC: HO.HMGCLDS 09:18
PROVIDERS: PCP Nurse Practitioner Family; Visit Provider Nurse Practitioner Family
DX: Z00.00 Encounter for general adult medical examination without abnormal findings (principal); Z12.5 Encounter for screening for malignant neoplasm of prostate; Z13.6 Encounter for screening for cardiovascular disorders
CPT/HCPCS: 36415; 80053; 80061; 81003; 84153; 84443; 85025

== ENCOUNTER 2025-02-07 11:06 | Outpatient (AMB) | payer BC, SELFPAY ==
[2025-02-07 11:11] VITALS: BP 120/70; PULSE 72; TEMP 36.7; O2SAT 97
--- NOTE | 2025-02-07 11:11 | AM.OFFWIN_ITS ---
Intake Vital Signs 02/07/25 11:11 Height 5 ft 9 in BP 120/70 Blood Pressure Location Rt brachial Position Sitting Pulse 72 Pulse Source Pulse Oximeter Temp 98.1 F Temp Source Oral Pulse Oximetry (%) 97 Oxygen Delivery Method Room Air Intake Visit Reasons: EP Consistant headaches Patient Tobacco Use Status: Never used Tobacco Allergies seafood Allergy (Unknown, Verified 02/07/25 11:12) Angioedema apple Allergy (Verified 02/07/25 11:12) Angioedema avocado Allergy (Verified 02/07/25 11:12) Angioedema Do you need a note to return to daycare/school/sports/work: No HPI HPI Comments History of Present Illness Details 50-year-old male history of hypothyroidi sm, hyperlipidemia presenting to the clinic with complaints of intermittent headaches since October. He reports they are diffuse in nature. He tells me he does not have a headache at this time he would like some input on these headaches. He reports recently as of 2 weeks ago he stopped consuming caffeine, he used to consume a lot of 5 hour energies. He had the headaches prior however they have gotten worse since he stopped caffeine. He denies visual changes, weakness, fevers, chills, recent illness, neck pain, nausea, vomiting, chest pain and shortness of breath. Physical exam benign. NIH stroke scale 0 History and physical exam concerning for migraine versus headache versus caffeine withdrawal. Unlikely meningitis, encephalitis, stroke, posterior stroke Plan will send patient Excedrin to take on an as-needed basis. He should follow up with PCP may need neurology No in dication for imaging at this time [facility] Surgical History History of vasectomy Family History Father Diabetes mellitus Mother Asthma Brother No problems noted. Brother No problems noted. Brother No problems noted. Brother No problems noted. Brother No problems noted. Brother No problems noted. Brother No problems noted. Brother Hyperthyroidism Sister No problems noted. Sister No problems noted. Sister No problems noted. Sister No problems noted. Daughter No problems noted. Daughter Hyperthyroidism Social History Housing: House Patient Tobacco Use Status: Never used Tobacco e-Cigarette/Vaping Use: Never Used Second Hand Smoke Exposure: No service: No Current occupational status: employed Current occupation: [employer] Current occupational exposures/hazards: No Cognitive needs: No Hearing needs: No Vision needs: No Review of Systems Const Details: Constitutional : No Weight loss, No Fever, No Chills, No Fatigue, No Malaise ENT/Mouth : No sore throat, No Rhinorrhea Eyes: No Eye Pain, No Swelling, No Redness Cardiovascular : No Chest Pain, No SOB, No Dyspnea on Exertion, No Orthopnea, No Edema, No Palpitations Respiratory : No Cough, No Sputum, No Wheezing Gastrointestinal : No Nausea, No Vomiting, No Diarrhea, No Constipation, No abdominal Pain, No Hematochezia, No Melena Genitourinary : No Dysuria, No Urinary Frequency, No Hematuria, Musculoskeletal : No joint pain, No Myalgias, No Joint Swelling Skin : No Skin Lesions, No rash Neuro : No Weakness, No Numbness, No Dizziness, No Headache Psych : No Anxiety/Panic, No Depression Heme/Lymph: No Bruising, No Bleeding,No Lymphadenopathy Endocrine : No Polyuria, No Polydipsia All other systems reviewed and are negative All systems reviewed & are unremarkable except as noted in HPI and below Physical Exam Exam Exam: Appearance: Alert.? Oriented X3.? No acute distress.? Head: Normocephalic, atraumatic, no step-offs or deformities Eyes: Pupils equal, round and reactive to light.? ENT: Pharynx normal.? Neck: Normal inspection.? Neck supple.? CVS: Normal heart rate and rhythm.? Pulses normal.? Respiratory: No respiratory distress.? Breath sounds normal.? Abdomen: Soft and nontender.? Skin: Skin warm and dry.? Normal skin color.? Normal skin turgor.? Extremities: No lower extremity edema.? No calf ttp. 5/5 strength to bilateral upper and lower extremities Back: No midline tenderness, no C-spine tenderness, full range of motion, no CVA tenderness bilaterally Neuro: Oriented X 3.? No motor deficit.? No sensory deficit. CN 2-12 intact . Normal ybuvui-bf-iuuk, rrnm-pb-ilvl steady tandem gait normal coordination Vital Signs: Last Vital Signs Temp 98.1 F 02/07/25 11:11 Pulse 72 02/07/25 11:11 BP 120/70 02/07/25 11:11 Pulse Ox 97 02/07/25 11:11 Oxygen Delivery Method Room Air 02/07/25 11:11 vss Assessment & Plan Assessment & Plan (1) Headache: Code(s): R51.9 - Headache, unspecified Plan Take your medications as prescribed. If you were prescribed antibiotics today, it is important that you take your medication to their entirety, do not skip any doses, do not finish them early. Follow-up with your primary care provider this week. Return to the emergency department with new or worsening symptoms. Such as fevers, chills, chest pain, shortness of breath, nausea, vomiting, dizziness, headache, vision changes, lethargy In case of emergency call 911 Medications: New oblcsmq-edkmolrdttczo-rrwbymkp 250-250-65 mg (Excedrin Migraine) 1 tab PO Q6H PRN 20 tabs 0RF pain Coding Level of Care Code Est Pt Level 3 (36290) Diagnoses Headache R51.9
== END 2025-02-07 12:15 | disposition home or self-care (01) ==
PROVIDERS: PCP Nurse Practitioner Family; Visit Provider Physician Assistant
DX: R51.9 Headache, unspecified (principal)

== ENCOUNTER 2025-03-02 06:42 | Outpatient (AMB) | payer BC, SELFPAY ==
--- NOTE | 2025-03-02 07:18 | MHC.PC.OV ---
Intake Visit Reasons: headaches Allergies seafood Allergy (Unknown, Verified 03/02/25 07:20) Angioedema apple Allergy (Verified 03/02/25 07:20) Angioedema avocado Allergy (Verified 03/02/25 07:20) Angioedema Tobacco use date assessed: 12/27/23 Dental Screening Dental Screen Date: 12/27/23 HPI headaches HPI Details History of Present Illness The patient is a 50-year-old male presenting with ongoing headaches, possibly migraines. The headaches began in October without any apparent cause and are characterized by sonophobia but no photophobia, nausea, or vomiting. He describes the headaches as sometimes associated with vasovagal symptoms, such as sneezing or having a bowel movement, which exacerbate the discomfort. The pain typically starts in the left yarsanism and can spread around the head. The headaches can disappear for weeks and then recur, often triggered by bending over, sneezing, or a bowel movement. He denies any blurred vision and has tried Excedrin and Motrin with limited relief. A preventative regimen of magnesium and vitamin B2 has been recommended, and he is scheduled for a follow-up with neurology in a few months. Imaging of the head and additional blood work, including a sedimentation rate, are planned to further evaluate his condition. Review of Systems - Neurological: Reports headaches with sonophobia. Denies photophobia, nausea, vomiting, and blurred vision. Plan 1. Headaches, Possibly Migraines The patient will be started on a preventative regimen of magnesium and vitamin B2 to manage the headaches. He is scheduled for a follow-up with neurology in a few months to further assess his condition. Imaging of the head is planned to investigate the sharp discomfort, and additional blood work, including a sedimentation rate, will be conducted. Discussion Notes I discussed with the patient the plan to start a preventative regimen of magnesium and vitamin B2 for his headaches. We also talked about the importance of follow-up with neurology and the need for imaging and blood work to further evaluate his condition. I advised him to seek emergency care if his symptoms worsen. Patient Instructions - Start taking magnesium and vitamin B2 as preventative treatment for headaches. - Follow up with neurology in a few months. - Undergo head imaging and blood work as planned. - Go to the emergency room if symptoms worsen. [facility] Surgical History History of vasectomy Family History Father Diabetes mellitus Mother Asthma Brother No problems noted. Brother No problems noted. Brother No problems noted. Brother No problems noted. Brother No problems noted. Brother No problems noted. Brother No problems noted. Brother Hyperthyroidism Sister No problems noted. Sister No problems noted. Sister No problems noted. Sister No problems noted. Daughter No problems noted. Daughter Hyperthyroidism Social History Housing: House Patient Tobacco Use Status: Never used Tobacco e-Cigarette/Vaping Use: Never Used Second Hand Smoke Exposure: No service: No Current occupational status: employed Current occupation: [employer] Current occupational exposures/hazards: No Cognitive needs: No Hearing needs: No Vision needs: No Questionnaire Thrive Questionnaire Date Thrive assessed: 12/27/23 I am a: Patient What is your living situation today?: I have a steady place to live Within the past 12 months, did the food you bought not last and you didn't have the money to get more?: Never true Within the past 12 months, did you worry whether your food would run out before you got money to buy more?: Never true Do you have trouble paying for medicines?: No Do you have trouble getting transportation to medical appointments?: No Do you have trouble paying your heating and electricity bill?: No Do you have trouble taking care of your child, family member or friend?: No Do you have trouble with day-to-day activities such as bathing, preparing meals, shopping, managing finances, etc.?: No Are you currently unemployed and looking for a job?: No Are you interested in more education?: Yes Please select the resources that you would like help with: None Currently or been in a relationship where the following occur: No concerns reported THRIVE Score: 0 CHAR-7 AMB Questionnaire CHAR-7 Date CHAR - 7 assessed: 12/27/23 Source: Developed by Drs. Francis Palacios, Alexandria Andre, Chintan Posey and colleagues, with an educational brooke from [employer]. Physical exam (Primary Care) Tobacco/Smoking Status: Tobacco use Status Tobacco use date assessed 12/27/23 12/27/23 09:45 Patient Tobacco Use Status Never used Tobacco 02/07/25 11:13 e-Cigarette/Vaping Use Never Used 12/27/23 09:45 Thrive Assessment: Date of Thrive Assessment Date Thrive assessed 12/27/23 12/27/23 09:45 Currently or been in a relationship where the following occur: No concerns reported Telehealth Telehealth Telehealth Platform: [email or web address] Location of provider rendering services: practice address Location of patient: address on file Patient Identification confirmed using: Name, : Yes Telehealth method: video Patient verbally consented to treatment: Yes Patient verbally consented to billing insurance company: Yes Patient informed of any privacy concerns related to visit: Yes Minutes spent on Phone/Video with Pt.: 15 Coding Level of Care Code Tele Est Pt Level 3 (41588) Diagnoses Headache R51.9 Frequent headaches R51.9 Jain tenderness R51.9 Assessment & Plan Assessment & Plan (1) Headache: Code(s): R51.9 - Headache, unspecified Category: Medical (2) Frequent headaches: Code(s): R51.9 - Headache, unspecified Category: Medical (3) Jain tenderness: Code(s): R51.9 - Headache, unspecified Category: Medical Plan . Orders: Orders MR head/brain wo con Today R51.9 - Headache, unspecified Erythrocyte Sedimentation Rate Today R51.9 - Headache, unspecified
== END 2025-03-02 13:46 | disposition home or self-care (01) ==
LOC: HO.HMCC 06:43
PROVIDERS: PCP Nurse Practitioner Family; Visit Provider Nurse Practitioner Family
DX: R51.9 Headache, unspecified (principal)

== ENCOUNTER 2025-03-12 09:44 | Outpatient (REF) | payer BC, SELFPAY ==
--- NOTE | ~2025-03-12 | US_ITS ---
CLINICAL HISTORY: R74.8 - Abnormal levels of other serum enzymes US abdomen complete Comparison: None Provided Findings: Gallbladder unremarkable, no stone formation or wall thickening. Common duct measures 2.3 mm. No sonographic Russ sign. Liver is homogeneous and normal in size and echogenicity. Right lobe measures 12.8 cm in length. Main portal vein patent with normal direction of flow. Pancreas is unremarkable. Aorta and IVC patent and normal in caliber. The right kidney is normal, 10.0 cm in length. No focal abnormality or hydronephrosis. The left kidney is normal, 10.2 cm in length. No focal abnormality or hydronephrosis. The spleen is normal, 9.4 cm in length. No focal abnormality. Impression: No significant abnormalities. This document has been electronically signed by: August Peterson MD on 03/12/2025 21:36:25
[2025-03-13 04:34] LABS: Hepatitis A Antibody IgM 0.18 Index (0-0.79); ~Hepatitis A Antibody IgM Nonreactive (Nonreactive)
[2025-03-13 04:56] LABS: HBS Num1 0.37 mIU/mL (0-7.99); HBc Num1 0.06 S/CO (0.00-0.79); HBsAGNum1 0.39 S/CO (0.00-0.99); Hepatitis B Surface Antigen Negative (Negative); ~HepC Num1 0.06 S/CO (0.00-0.79); ~Hepatitis B Surface Antibody NONREACTIVE (Nonreactive); ~Hepatitis C Antibody Nonreactive (Nonreactive)
== END 2025-03-12 09:45 | disposition home or self-care (01) ==
LOC: HO.HMGCX 09:44
PROVIDERS: PCP Nurse Practitioner Family; Visit Provider Nurse Practitioner Family
DX: R74.8 Abnormal levels of other serum enzymes (principal); R51.9 Headache, unspecified
CPT/HCPCS: 36415; 76700; 85652; 86704; 86706; 86709; 86803; 87340

== ENCOUNTER → 2025-03-12 10:09 | Outpatient (BNV) | payer BC, SELFPAY | PROVIDERS: PCP Nurse Practitioner Family; Visit Provider Radiology Diagnostic Radiology | DX: R74.8 Abnormal levels of other serum enzymes (principal) | CPT/HCPCS: 76700 ==

== ENCOUNTER 2025-03-17 16:26 | Outpatient (AMB) | payer BC, SELFPAY ==
--- NOTE | 2025-03-17 16:27 | MHC.OFFWIV ---
Intake Vital Signs 03/17/25 16:28 Height 5 ft 9 in Weight 156 lb BMI 23.0 BP 110/60 Blood Pressure Location Lt brachial Position Sitting Pulse 72 Pulse Source Pulse Oximeter Temp 97.5 F Temp Source Oral Pulse Oximetry (%) 98 Oxygen Delivery Method Room Air Intake Visit Reasons: EP Humming in head Intake Note: pt presents with humming in head beginning today. pt notes on abx x4 days s/p teeth extraction and off/on headaches (MRI scheduled 03/30/25) Patient Tobacco Use Status: Never used Tobacco Allergies seafood Allergy (Unknown, Verified 03/17/25 16:29) Angioedema apple Allergy (Verified 03/17/25 16:29) Angioedema avocado Allergy (Verified 03/17/25 16:29) Angioedema Do you need a note to return to daycare/school/sports/work: No HPI HPI Comments History of Present Illness Details History of Present Illness - The patient is a 50-year-old male presenting with humming in the head and ears. - The tinnitus began suddenly a few hours ago and has persisted for a few hours. - The patient reports a history of migraines but denies any current headache or pain associated with the tinnitus. - The patient recently underwent a dental procedure involving the extraction of a wisdom tooth and a molar, and has been on amoxicillin since Sunday. - The patient is currently taking atorvastatin for hyperlipidemia. - The patient has experienced no ear pain, jaw pain, or facial pain. - The patient has no history of ear infections or fluid in the ears. - The patient denies any chest pain, shortness of breath, or fever. Physical Exam General: Cooperative, healthy appearing, comfortable, no acute distress and well developed Head: Normal to inspection Face and sinus: Swelling noted on the left lower face along the jawline. Mouth/Throat: No halitosis noted. Tongue is normal and midline. Uvula is midline. Oropharynx is pink with no exudates noted. Tonsils not swollen. Dental caries noted on the right lower molar. Gingiva is pink. No discharge noted. Neck: Normal visual inspection and full ROM. No lymphadenopathy noted. Respiratory: Normal respiratory effort and able to speak in complete sentences. Clear to auscultation bilaterally Cardiovascular: Regular rate and rhythm. Normal S1 and S2 Skin: No rashes or lesions noted [facility] Surgical History History of vasectomy Family History Father Diabetes mellitus Mother Asthma Brother No problems noted. Brother No problems noted. Brother No problems noted. Brother No problems noted. Brother No problems noted. Brother No problems noted. Brother No problems noted. Brother Hyperthyroidism Sister No problems noted. Sister No problems noted. Sister No problems noted. Sister No problems noted. Daughter No problems noted. Daughter Hyperthyroidism Social History Housing: House Patient Tobacco Use Status: Never used Tobacco e-Cigarette/Vaping Use: Never Used Second Hand Smoke Exposure: No service: No Current occupational status: employed Current occupation: [employer] Current occupational exposures/hazards: No Cognitive needs: No Hearing needs: No Vision needs: No Review of Systems Const All systems reviewed & are unremarkable except as noted in HPI and below Physical Exam Vital Signs: Last Vital Signs Temp 97.5 F 03/17/25 16:28 Pulse 72 03/17/25 16:28 BP 110/60 03/17/25 16:28 Pulse Ox 98 03/17/25 16:28 Oxygen Delivery Method Room Air 03/17/25 16:28 BMI result Body Mass Index 23.0 Assessment & Plan Assessment & Plan (1) Ringing in ear: Code(s): H93.19 - Tinnitus, unspecified ear Qualifiers: Laterality: bilateral Qualified Code(s): H93.13 - Tinnitus, bilateral Plan Most likely tinnitus due to antibiotic use after his dental procedure plan - stop the amoxicillin - start clindamycin 300 mg TID for 7 days - will reach out to PCP about his atovastatin and stopping it if the ringing does not resolve with the antibiotics switch - has an upcoming MRI on 03/30 - also has a neuro appt in Jun - advised to go to the ER if his symptoms worsen - follow up with PCP Medications: New clindamycin HCl 300 mg (2 x 150 mg) PO Q8H 42 caps 0RF 7 days Coding Level of Care Code Est Pt Level 3 (65086) Diagnoses Tinnitus of both ears H93.13 Laterality: bilateral
[2025-03-17 16:28] VITALS: BP 110/60; PULSE 72; TEMP 36.4; O2SAT 98; BMI 23.0
== END 2025-03-17 16:49 | disposition home or self-care (01) ==
PROVIDERS: PCP Nurse Practitioner Family; Visit Provider Physician Assistant Medical
DX: H93.13 Tinnitus, bilateral (principal)

== ENCOUNTER 2025-03-20 12:08 | Emergency (ER) | payer BC, SELFPAY ==
--- NOTE | ~2025-03-20 | CT_ITS ---
CLINICAL HISTORY: headaches CT head without contrast Comparison: None provided Findings: No intra-axial mass, midline shift, hydrocephalus, or acute hemorrhage. No significant atrophy-like change or white matter disease. The visualized paranasal sinuses and mastoid air cells are normal. The orbits are within normal limits. No skull fracture. IMPRESSION: 1. No acute intracranial findings. This document has been electronically signed by: Fran Parnell MD on 03/20/2025 18:37:06
[2025-03-20 12:37] VITALS: BP 150/71; PULSE 70; RESP 16; TEMP 37; O2SAT 99; BMI 26.0
[2025-03-20 15:12] VITALS: BP 148/72; PULSE 88; RESP 20; O2SAT 96
[2025-03-20 16:00] VITALS: BP 144/78; PULSE 70; RESP 20; O2SAT 97
--- NOTE | 2025-03-20 16:35 | ED.EAR ---
HPI - Ear Problem General Chief complaint: Ear Problems Stated complaint: hearing buzzing noise, lost of hearing at times Time Seen by Provider: 03/20/25 15:51 Source: patient and old records reviewed Mode of arrival: ambulatory Limitations: no limitations History of Present Illness ED Provider: ADRIANE FERMIN Narrative: 50-year-old male with past medical history of hypothyroidism, hyperlipidemia who underwent right lower wisdom tooth extraction and molar extraction on Sunday under nitrous oxide. Prior to that he had been on oral amoxicillin for a total of 5 days starting Sunday. He notes after the procedure on Sunday he started to have intermittent ringing and buzzing in both ears. He denies any other symptoms numbness, weakness, , vision changes. He has been healing well. He has never had anything like this before. He has been dealing with chronic migraines and headaches since October but has not had any imaging he does have an outpatient MRI scheduled on March 30. Complaint: other Location: bilateral Duration: intermittent Severity: moderate Relieving factors: nothing Exacerbating factors: nothing Context: other Associated symptoms ear: tinnitus Treatment prior to arrival: none Related Data Previous Rx's ?Medication ?Instructions ?Recorded levothyroxine 112 mcg tablet 112 mcg PO DAILY #90 tabs 11/12/24 atorvastatin 10 mg tablet 10 mg PO BEDTIME #90 tabs 01/20/25 oklueug-yrxfihqaddqsh-iyotxokz 250 1 tab PO Q6H PRN pain #20 tabs 02/07/25 mg-250 mg-65 mg tablet (Excedrin Migraine) clindamycin HCl 150 mg capsule 300 mg (2 x 150 mg) PO Q8H 7 days 03/17/25 #42 caps Allergies Allergy/AdvReac Type Severity Reaction Status Date / Time seafood Allergy Unknown Angioedema Verified 03/20/25 12:40 apple Allergy Angioedema Verified 03/20/25 12:40 avocado Allergy Angioedema Verified 03/20/25 12:40 Review of Systems Review of Systems: Constitutional : No Fever, No Chills, No Fatigue ENT/Mouth : No sore throat, No Rhinorrhea Eyes: No Eye Pain, No Swelling, No Redness Cardiovascular : No Chest Pain, No SOB, No Dyspnea on Exertion Respiratory : No Cough, No Sputum Gastrointestinal : No Nausea, No Vomiting, No Diarrhea, No abdominal Pain Genitourinary : No Dysuria, No Urinary Frequency, No Hematuria, Musculoskeletal : No joint pain, No Myalgias, No Joint Swelling Skin : No Skin Lesions, No rash Neuro : No Weakness, No Numbness, No Dizziness, positive Headache All other systems reviewed and are negative [facility] Past Medical History Attestation statement: The following information was validated with the patient. Source: old records reviewed Medical History Hypothyroid Dyslipidemia Surgical History History of vasectomy Family History Family History Father Diabetes mellitus Mother Asthma Brother No problems noted. Brother No problems noted. Brother No problems noted. Brother No problems noted. Brother No problems noted. Brother No problems noted. Brother No problems noted. Brother Hyperthyroidism Sister No problems noted. Sister No problems noted. Sister No problems noted. Sister No problems noted. Daughter No problems noted. Daughter Hyperthyroidism Social History Social History Housing: House Patient Tobacco Use Status: Never used Tobacco e-Cigarette/Vaping Use: Never Used Second Hand Smoke Exposure: No Advance Directives: No Advance Directives Information Provided: Yes service: No Current occupational status: employed Current occupation: [employer] Current occupational exposures/hazards: No Cognitive needs: No Hearing needs: No Vision needs: No Physical Exam Vital Signs: Vital Signs: Last Vital Signs Temp 98.6 F 03/20/25 12:37 Pulse 72 03/20/25 18:00 Resp 18 03/20/25 18:00 BP 142/84 H 03/20/25 18:00 Pulse Ox 99 03/20/25 18:00 O2 Del Method Room Air 03/20/25 18:00 BMI result Body Mass Index 26.0 Appearance: Alert. Oriented X3. No acute distress. Eyes: Pupils equal, round and reactive to light. ENT: Pharynx normal. Well healing socket on right lower side but no signs of abscess or infection, bilateral ears are normal no cerumen noted no infection noted no perforation noted Neck: Normal inspection. Neck supple. CVS: Normal heart rate and rhythm. Pulses normal. Respiratory: No respiratory distress. Breath sounds normal. Abdomen: Soft and nontender. Skin: Skin warm and dry. Normal skin color. Normal skin turgor. Extremities: No lower extremity edema. No calf ttp Neuro: Oriented X 3. No motor deficit. No sensory deficit. CN2-12 intact Medical Decision Making Medical Decision Making [facility] Narrative: 50-year-old male with past medical history of hypo thyroidism, hyperlipidemia who presents with tinnitus intermittently of both ears after dental extraction he has no signs of infection on exam, he is well healing, he has no other neuro deficits. He did have a longstanding headache but pain and symptoms are on both sides be unlikely to be an aneurysm causing this. I am going to obtain dry CT scan to rule out mass and if his workup is negative going to refer to ENT Differential Diagnosis Differential Diagnoses: The differential diagnosis associated with the presentation includes Medication reaction, mass, electrolyte abnormality Admission/Observation Consideration of admission/observation: Escalation of care including admission/observation considered I do not think there is any acute emergent issue given normal labs and reassuring CT head will refer to ENT as outpatient he is aware he has no longer taking the amoxicillin so any ototoxic agent has been removed Lab Data [facility] Lab Attestation statement: I reviewed the patient's lab results. 03/20/25 16:32 03/20/25 16:31 Labs: Lab Results 03/20/25 03/20/25 Range/Units 16:31 16:32 WBC 6.3 (4.8-10.8) X10*3/uL RBC 5.13 (4.60-5.80) X10*6/uL Hgb 15.4 (14.0-18.0) g/dl Hct 45.2 (42.0-52.0) % MCV 88.1 (80.0-98.0) fL MCH 30.0 (27.0-33.0) pg MCHC 34.1 (31.0-36.0) g/dl RDW 11.3 (11.0-16.0) % Plt Count 247 (160-400) X10*3/uL MPV 9.0 L (9.4-12.4) fL Immature Gran % (Auto) 0.3 (0.0-0.4) % Neut % (Auto) 68.0 (45-73) % Lymph % (Auto) 23.3 (20-40) % Early % (Auto) 7.3 (2-11) % Eos % (Auto) 0.6 (0-4) % Baso % (Auto) 0.5 (0-2) % Lymph # (Auto) 1.5 (1.2-4.9) X10*3/uL Early # (Auto) 0.5 (0.1-1.2) X10*3/uL Eos # (Auto) 0.0 (0.0-0.4) X10*3/uL Baso # (Auto) 0.0 (0.0-0.2) X10*3/uL Abs Immat Gran (auto) 0.02 (0.00-0.03) X10*3/uL Absolute Neuts (auto) 4.3 (2.0-8.3) x10*3/uL Absolute Nucleated RBC 0.000 (0.0-0.012) X10*3/uL Nucleated RBC % (auto) 0.0 (0.0-0.2) /100WBC Sodium 141 (135-145) mmol/L Potassium 4.7 D (3.3-5.1) mmol/L Chloride 105 (96-108) mmol/L Carbon Dioxide 24 (22-29) mmol/L Anion Gap 17 (12-20) BUN 11 (9-16) mg/dL Creatinine 0.80 (0.5-1.4) mg/dL Estim Creat Clear Calc 93.5 Estimated GFR > 60 Random Glucose 77 (60-115) mg/dL Calcium 9.3 (8.4-10.2) mg/dL TSH 0.18 L (0.32-4.0) uIU/mL Free T4 1.34 (0.71-1.85) ng/dL Independent Interpretation I performed an independent interpretation of an: CT Scan (Normal) Radiology Impression Discussion of test interpretation with radiology: I have reviewed the radiologist's reading. External Record Review External record reviewed: Outpatient record Prescription Management I considered prescription management with: Other Discharge Plan Discharge Clinical Impression: Bilateral tinnitus Patient Disposition: Home, Self-Care Instructions: Tinnitus (ED) Additional Instructions: At this time your labs and CT head of the brain did not show any acute abnormalities Please follow-up with ENT, see number listed below Return for any worsening symptoms or concerns Your TSH was 0.18 but your free T4 was normal your doctor should repeat your thyroid panel in 1 week [facility] [address] [facility] mass [phone] Findings: No intra-axial mass, midline shift, hydrocephalus, or acute hemorrhage. No significant atrophy-like change or white matter disease. The visualized paranasal sinuses and mastoid air cells are normal. The orbits are within normal limits. No skull fracture. IMPRESSION: 1. No acute intracranial findings. Prescriptions: No Action levothyroxine 112 mcg tablet 112 mcg PO DAILY Qty: 90 1RF atorvastatin 10 mg tablet 10 mg PO BEDTIME Qty: 90 0RF esepogt-zuivdmmummxmj-tuhoxhyb [Excedrin Migraine] 250-250-65 mg tablet 1 tab PO Q6H PRN (Reason: pain) Qty: 20 0RF clindamycin HCl 150 mg capsule 300 mg PO Q8H 7 Days Qty: 42 0RF Print Language: Indonesian
[2025-03-20 16:40] LABS: MANUAL DIFF FLAG NO
[2025-03-20 16:47] LABS: Hematocrit 45.2 % (42.0-52.0); Hemoglobin 15.4 g/dl (14.0-18.0); Imm Gran Abs Auto 0.02 X10*3/uL (0.00-0.03); Imm Gran Pct Auto 0.3 % (0.0-0.4); Lymphocytes Absolute Auto 1.5 X10*3/uL (1.2-4.9); Mean Corpuscular HGB Conc 34.1 g/dl (31.0-36.0); Mean Corpuscular Hemoglobin 30.0 pg (27.0-33.0); Mean Corpuscular Volume 88.1 fL (80.0-98.0); NRBC Abs Auto 0.000 X10*3/uL (0.0-0.012); NRBC Pct Auto 0.0 /100WBC (0.0-0.2); Platelet Count 247 X10*3/uL (160-400); Red Blood Count 5.13 X10*6/uL (4.60-5.80); White Blood Count 6.3 X10*3/uL (4.8-10.8)
[2025-03-20 17:02] LABS: Anion Gap 17 (12-20); Blood Urea Nitrogen 11 mg/dL (9-16); Calcium 9.3 mg/dL (8.4-10.2); Carbon Dioxide 24 mmol/L (22-29); Chloride 105 mmol/L (96-108); Creatinine Clr Calc Pharmacy 93.5; Estimated Glomerular Filt Rate > 60; Potassium 4.7 mmol/L (3.3-5.1); Sodium 141 mmol/L (135-145)
[2025-03-20 17:59] LABS: Free T4 (Free Thyroxine) 1.34 ng/dL (0.71-1.85)
[2025-03-20 18:00] VITALS: BP 142/84; PULSE 72; RESP 18; O2SAT 99
[2025-03-20 18:42] VITALS: BP 142/84; PULSE 72; RESP 18; TEMP 36.7; O2SAT 99
== END 2025-03-20 18:46 | disposition home or self-care (01) ==
PROVIDERS: Emergency Provider Emergency Medicine; PCP Nurse Practitioner Family
DX: H93.13 Tinnitus, bilateral (principal); R51.9 Headache, unspecified; Z79.899 Other long term (current) drug therapy
CPT/HCPCS: 36415; 70450; 80048; 84439; 84443; 85025; 99282; 99284

== ENCOUNTER → 2025-03-20 16:18 | Outpatient (BNV) | payer BC, SELFPAY | PROVIDERS: Emergency Provider Emergency Medicine; PCP Nurse Practitioner Family; Visit Provider Radiology Diagnostic Radiology | DX: R51.9 Headache, unspecified (principal) | CPT/HCPCS: 70450 ==

== ENCOUNTER 2025-03-24 06:16 | Outpatient (AMB) | payer BC, SELFPAY ==
--- NOTE | 2025-03-24 07:35 | A.OFFPC_ITS ---
Intake Visit Reasons: Hearing and ear concerns, Android Allergies amoxicillin Allergy (Intermediate, Verified 03/24/25 07:21) Unknown seafood Allergy (Unknown, Verified 03/20/25 12:40) Angioedema apple Allergy (Verified 03/20/25 12:40) Angioedema avocado Allergy (Verified 03/20/25 12:40) Angioedema Medication List - Last Reconciled 03/24/25 by Ricky To MICROBIAL SPECIALIST- dcrphlw-lbhikexhjftww-ecbpgdvk 250-250-65 mg (Excedrin Migraine) 1 tab PO Q6H PRN levothyroxine 112 mcg PO DAILY Tobacco use date assessed: 12/27/23 Dental Screening Dental Screen Date: 12/27/23 HPI Hearing and ear concerns, Android HPI Details History of Present Illness The patient is a 50-year-old male who underwent a right lower wisdom tooth and molar extraction on March 16 under nitrous oxide sedation. Prior to the procedure, he completed a five-day course of oral amoxicillin. The day after the procedure, he developed intermittent ringing and buzzing in both ears. He denied any other associated symptoms. He was seen in the emergency department for these symptoms on March 20, where a CT scan of the head was performed and showed no acute abnormalities, and a referral to ENT was placed. Lab work from the emergency department visit revealed a low TSH of 0.18 with a normal free T4. The patient has a history of chronic migraines and headaches since October and has an outpatient MRI scheduled for March 30. He reports he wants to stop taking atorvastatin and vitamin B2 due to concerns about potential ototoxicity. Review of Systems - Ears: Reports intermittent ringing and buzzing in both ears. - Neurological: Reports chronic migraine s and headaches since October. -denies any fevers, chills, n/v, blurred vision, CP, sob, dysphagia. Plan 1. Tinnitus The patient presents with new-onset tinnitus following a recent dental extraction and course of amoxicillin. He was evaluated in the ED on 03/20, where a head CT was negative for acute abnormalities and an ENT referral was placed. He has an outpatient MRI scheduled for 03/30 for headaches. The patient is discontinuing atorvastatin and vitamin B2 due to concerns of ototoxicity. I look forward to ENTs eval and treatment plans 2. Subclinical Hyperthyroidism Recent labs from the ED showed a TSH of 0.18 with a normal free T4. Plan is to repeat TSH levels. 3. Hypercholesterolemia The patient wishes to discontinue atorvastatin due to concerns of ototoxicity, despite it working well. He will be started on Verdi bergamot for cholesterol management. 4. Chronic Migraines The patient has been experiencing chronic migraines and headaches since October. He has an MRI scheduled for March 30. He is stopping his vitamin B2 supplement due to concerns about ototoxicity. Discussion Notes I acknowledged the patient's concerns regarding his new-onset tinnitus, which started after his recent dental procedure. We discussed his decision to stop atorvastatin and vitamin B2 due to his concerns about ototoxicity. I noted that his statin was working well but agreed to his request to switch to Verdi bergamot for his cholesterol. I informed him that we will recheck his TSH level, which was recently found to be low, and that he should proceed with his scheduled MRI. Patient Instructions - You may stop taking atorvastatin and v itamin B2 as you requested due to your concerns. - Begin taking Verdi bergamot to help m anage your cholesterol. - We will arrange for blood work to rech devang your thyroid hormone level (TSH). - Please keep your appointment for the M RI scan scheduled for March 30. - We will follow up on the referral to [facility] ([facility]) specialist that was made during your emergency room visit. [facility] Medical History (Updated 03/24/25 @ 07:23 by VALENTIN Segura) Hypothyroid Dyslipidemia Surgical History History of vasectomy Family History Father Diabetes mellitus Mother Asthma Brother No problems noted. Brother No problems noted. Brother No problems noted. Brother No problems noted. Brother No problems noted. Brother No problems noted. Brother No problems noted. Brother Hyperthyroidism Sister No problems noted. Sister No problems noted. Sister No problems noted. Sister No problems noted. Daughter No problems noted. Daughter Hyperthyroidism Social History Housing: House Patient Tobacco Use Status: Never used Tobacco e-Cigarette/Vaping Use: Never Used Second Hand Smoke Exposure: No service: No Current occupational status: employed Current occupation: [employer] Current occupational exposures/hazards: No Cognitive needs: No Hearing needs: No Vision needs: No Questionnaire Thrive Questionnaire Date Thrive assessed: 12/27/23 I am a: Patient What is your living situation today?: I have a steady place to live Within the past 12 months, did the food you bought not last and you didn't have the money to get more?: Never true Within the past 12 months, did you worry whether your food would run out before you got money to buy more?: Never true Do you have trouble paying for medicines?: No Do you have trouble getting transportation to medical appointments?: No Do you have trouble paying your heating and electricity bill?: No Do you have trouble taking care of your child, family member or friend?: No Do you have trouble with day-to-day activities such as bathing, preparing meals, shopping, managing finances, etc.?: No Are you currently unemployed and looking for a job?: No Are you interested in more education?: Yes Please select the resources that you would like help with: None Currently or been in a relationship where the following occur: No concerns reported THRIVE Score: 0 CHAR-7 AMB Questionnaire CHAR-7 Date CHAR - 7 assessed: 12/27/23 Source: Developed by Drs. Francis Palacios, Alexandria Andre, Chintan Posey and colleagues, with an educational brooke from [employer]. Physical exam (Primary Care) Tobacco/Smoking Status: Tobacco use Status Tobacco use date assessed 12/27/23 03/24/25 07:36 Patient Tobacco Use Status Never used Tobacco 03/24/25 07:36 e-Cigarette/Vaping Use Never Used 03/24/25 07:36 Thrive Assessment: Date of Thrive Assessment Date Thrive assessed 12/27/23 03/24/25 07:36 Currently or been in a relationship where the following occur: No concerns reported Telehealth Telehealth Telehealth Platform: [facility] Location of provider rendering services: practice address Location of patient: address on file Patient Identification confirmed using: Name, : Yes Telehealth method: video Patient verbally consented to treatment: Yes Patient verbally consented to billing insurance company: Yes Patient informed of any privacy concerns related to visit: Yes Minutes spent on Phone/Video with Pt.: 30 Coding Level of Care Code Tele Est Pt Level 4 (18280) Diagnoses Hypothyroid E03.9 Spontaneous estephania-acoustic emission tinnitus of both ears H93.13 Assessment & Plan Assessment & Plan (1) Hypothyroid: Code(s): E03.9 - Hypothyroidism, unspecified Category: Medical (2) Spontaneous estephania-acoustic emission tinnitus of both ears: Comment: noted after dental procedure on 03/16/2025 Code(s): H93.13 - Tinnitus, bilateral Category: Medical Plan . Orders: Orders TSH reflex Free T4 Today E03.9 - Hypothyroidism, unspecified Referrals Ear/Nose/Throat Referral H93.13 - Tinnitus, bilateral Medications: New bergamot extract (Verdi Bergamot) 1,000 mg (2 x 500 mg) PO DAILY 60 caps 3RF 30 days Discontinued lwnctos-fakarqrvdqqch-fzoymeqd 250-250-65 mg (Excedrin Migraine) Discontinued Reason: Doctor's Order 1 tab PO Q6H PRN 20 tabs 0RF pain clindamycin HCl Discontinued Reason: Doctor's Order 300 mg (2 x 150 mg) PO Q8H 7 days 42 caps 0RF atorvastatin Discontinued Reason: Patient Refused 10 mg PO BEDTIME 90 tabs 0RF
== END 2025-03-24 07:59 | disposition home or self-care (01) ==
LOC: HO.HMCC 06:16
PROVIDERS: PCP Nurse Practitioner Family; Visit Provider Nurse Practitioner Family
DX: E03.9 Hypothyroidism, unspecified (principal); H93.13 Tinnitus, bilateral

== ENCOUNTER → 2025-03-30 18:33 | Outpatient (BNV) | payer BC, SELFPAY | PROVIDERS: PCP Nurse Practitioner Family; Visit Provider Radiology Diagnostic Radiology | DX: R51.9 Headache, unspecified (principal) | CPT/HCPCS: 70551 ==

== ENCOUNTER 2025-03-30 18:39 | Outpatient (REF) | payer BC, SELFPAY ==
--- NOTE | ~2025-03-30 | MR_ITS ---
EXAMINATION: MR BRAIN WITHOUT CONTRAST CLINICAL INFORMATION: R 51.9. COMPARISON: Correlated to CT dated March 20, 2025. TECHNIQUE: MRI of the brain was obtained using routine sequences without contrast. FINDINGS: No restricted diffusion. No acute intracranial hemorrhage, mass effect, midline shift, hydrocephalus or herniation. Ledbetter-white matter differentiation is normal. There are a few, nonspecific, subcortical white matter hyperintense T2 FLAIR signal foci in the frontal lobes, most conspicuous in the right superior frontal gyrus. Posterior cranial fossa contents demonstrated no signal abnormality or mass effect. Craniocervical junction is intact with low layering cerebellar tonsils. Sellar/suprasellar region demonstrated no signal abnormality or gross masses. Flow-void signal within the main cerebral vessels is normal. Prominence of the extra-axial CSF spaces cerebral sulci in the frontal lobes. MR/MR head/brain wo con IMPRESSION: No acute brain abnormality. Nonspecific white matter T2 FLAIR signal which could be seen patients with migraines. Low-lying cerebellar tonsils.. Electronically signed by: Rj Loera MD 03/31/2025 06:45 AM EST
== END 2025-03-30 18:40 | disposition home or self-care (01) ==
LOC: HO.MRI 18:39
PROVIDERS: PCP Nurse Practitioner Family; Visit Provider Nurse Practitioner Family
DX: R51.9 Headache, unspecified (principal)
CPT/HCPCS: 70551

== ENCOUNTER 2025-04-20 08:20 | Outpatient (REF) | payer BC, SELFPAY ==
[2025-04-20 11:44] LABS: Alanine Aminotransferase 31 U/L (0-40); Albumin Level 4.5 g/dL (3.5-5.0); Alkaline Phosphatase 73 U/L (39-117); Anion Gap 10 (12-20); Aspartate Amino Transferase 25 U/L (5-37); Blood Urea Nitrogen 11 mg/dL (9-16); Calcium 8.8 mg/dL (8.4-10.2); Carbon Dioxide 29 mmol/L (22-29); Chloride 108 mmol/L (96-108); Estimated Glomerular Filt Rate > 60; Potassium 3.7 mmol/L (3.3-5.1); Sodium 143 mmol/L (135-145); Total Protein 7.1 g/dL (6.5-8.0)
[2025-04-20 11:50] LABS: Vitamin B12 781 pg/mL (200-900)
[2025-04-20 13:30] LABS: Free T4 (Free Thyroxine) 1.19 ng/dL (0.71-1.85)
== END 2025-04-20 08:21 | disposition home or self-care (01) ==
LOC: HO.HMGCLDS 08:20
PROVIDERS: PCP Nurse Practitioner Family; Visit Provider Nurse Practitioner Family
DX: H93.13 Tinnitus, bilateral (principal); R74.8 Abnormal levels of other serum enzymes; R51.9 Headache, unspecified; E56.9 Vitamin deficiency, unspecified; E03.9 Hypothyroidism, unspecified
CPT/HCPCS: 36415; 80053; 82306; 82607; 84252; 84425; 84439; 84443; 84590; 84630

== ENCOUNTER 2025-05-13 10:52 | Outpatient (AMB) | payer BC, SELFPAY ==
--- NOTE | 2025-05-13 10:56 | A.OFFPC_ITS ---
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 Accompanied by: Self / Same As Patient Allergies amoxicillin Allergy (Intermediate, Verified 03/24/25 07:21) Unknown seafood Allergy (Unknown, Verified 03/20/25 12:40) Angioedema apple Allergy (Verified 03/20/25 12:40) Angioedema avocado Allergy (Verified 03/20/25 12:40) Angioedema Medication List - Last Reconciled 05/13/25 by Ricky To, [facility]- bergamot extract ([place] Bergamot) 1,000 mg (2 x 500 mg) PO DAILY 30 days hydrocortisone 2.5% (Anusol-HC) 1 appl SC BID-QID PRN levothyroxine (Levoxyl) 100 mcg PO DAILY sumatriptan succinate take 1 tab at onset of headache; if no relief may repeat 1 tab after at least 2 hrs; max = 4 tabs/24 hr PO Tobacco use date assessed: 05/13/25 Dental Screening Dental Screen Date: 12/27/23 HPI Humming on head HPI Details Chief Complaint The patient presents for a follow-up visit regarding tinnitus and headaches. History of Present Illness The patient is a 50 year old male presenting for follow-up on tinnitus and headaches. He reports the onset of tinnitus in October following a dental procedure, initially presenting as tinnitus. His tinnitus symptoms have been improving, with periods of remission lasting no more than two consecutive days, though .still very much present, i can deal with it more He also has a history of headaches, which can occur all over his head but especially in the occipital region, raising suspicion for migraines. An MRI ordered for the tinnitus and frequent headaches revealed nonspecific white matter T2 flare signals, a finding often associated with migraines. does get intermittent sonophobia and photophobia. ? 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 He also has a history of hemorrhoids, and he has been advised to manage his constipation. Hyperlipidemia: on intermittent citrus bergamot, will recheck levels in the near future Social History Health Maintenance As the patient has not yet completed his Cologuard test, it will be reordered and sent to him. He was advised to report any changes in his bowel habits. Review of Systems - Constitutional: Denies fevers. - HEENT: Reports tinnitus, which has bee n improving but has not resolved for more than two consecutive days. - Neurological: Reports headaches that c an affect his entire head, particularly the occipital region. - Gastrointestinal: Denies nausea or vom iting. - Reports a history of hemorrhoids. Physical Exam General: Cooperative, healthy appearing, comfortable, no acute distress and well developed Orientation: Patient oriented x3 Limitations: No limitations Head: Normal to inspection Ears: Hearing grossly normal bilaterally Nose: Normal external nose present Face and sinus: Normal facial exam Eyes: Appearance normal, both eyes and all related structures. Neck: Normal visual inspection and Yes full ROM Respiratory: Normal respiratory effort and able to speak in complete sentences. Clear to auscultation bilaterally Cardiovascular: Regular rate and rhythm. Normal S1 and S2 GI: Normal to inspection. Soft to palpation and nontender. Patient reports a history of hemorrhoids Skin: No rashes or lesions noted Neuro: Patient oriented x3 Extremities: Normal to inspection Results - MRI Brain: Showed nonspecific white ma tter T2 flare signal, which is often seen in patients with migraines. Plan 1. Tinnitus The patient reports tinnitus that began after a dental procedure and is improvin g but persists. He will be seeing an ENT specialist in the near future for further evaluation. 2. Migraine Headaches The patient experiences headaches, suspected to be migraines, localized to the occipital area. An MRI showed nonspecific white matter changes often seen with migraines. Sumatriptan has been prescribed for abortive therapy, though he has not yet used it. He has a scheduled appointment with a neurologist in June for further assessment. 3. Hemorrhoids The patient has a history of hemorrhoids. A prescription for Anusol has been sent, and the importance of treating constipation to manage this condition was emphasized. 4. keratoconus of both eyes: seeing avery ibrahim 5. dyslipidema: lab ordered Discussion Notes I discussed with the patient that his tinnitus started after a dental procedure in October and has been improving. We reviewed his history of headaches and eye issues, including keratoconus and macular edema. I explained that the MRI find ing of nonspecific white matter T2 flare signals is commonly seen in individuals with migraines. I have prescribed sumatriptan for him to use as needed for his headaches and informed him he has not tried it yet. We discussed his planned consultations with an ENT specialist for the tinnitus and a neurologist in June for his headaches. For his history of hemorrhoids, I prescribed Anusol and strongly emphasized the need to manage constipation. I noted that he has not yet completed his Cologuard test, and I will be re-sending it. I advised him to report any changes in bowel habits. Patient Instructions - If you have a headache, you can try th e sumatriptan medication that was prescribed. - You have a prescription for Anusol to help with your hemorrhoids. - It is very important to treat your con stipation to help with the hemorrhoids. - We will send you another Cologuard vaishlai t for colon cancer screening; please complete it. - Please let me know if you notice any c hanges in your bowel habits. - Make sure to see the ear, nose, and th roat (ENT) specialist for your tinnitus. - You have an appointment with a neurolo gist in June to discuss your headaches. -please call with further questions or c oncerns [facility] Medical History Dyslipidemia Keratoconus of both eyes Macular edema of left eye Hypothyroid Surgical History History of vasectomy Family History Father Diabetes mellitus Mother Asthma Brother No problems noted. Brother No problems noted. Brother No problems noted. Brother No problems noted. Brother No problems noted. Brother No problems noted. Brother No problems noted. Brother Hyperthyroidism Sister No problems noted. Sister No problems noted. Sister No problems noted. Sister No problems noted. Daughter No problems noted. Daughter Hyperthyroidism Social History Housing: House Patient Tobacco Use Status: Never used Tobacco e-Cigarette/Vaping Use: Never Used Second Hand Smoke Exposure: No service: No Current occupational status: employed Current occupation: [employer] Current occupational exposures/hazards: No Cognitive needs: No Hearing needs: No Vision needs: No Questionnaire PHQ-9 Over the last 2 weeks, how often have you been bothered by any of the following problems? 1. Little interest or pleasure in doing things: not at all 2. Feeling down, depressed, or hopeless: several days 3. Trouble falling or staying asleep, or sleeping too much: several days 4. Feeling tired or having little energy: several days 5. Poor appetite or overeating: several days 6. Feeling bad about yourself - or that you are a failure or have let yourself or your family down: not at all 7. Trouble concentrating on things, such as reading the newspaper or watching television: several days 8. Moving or speaking so slowly that other people could have noticed. Or the opposite - being so fidgety or restless that you have been moving around a lot more than usual: not at all 9. Thoughts that you would be better off or of hurting yourself in some way: not at all Total score: 5 Depression Screening Interpretation: Negative Depression Screening Done: Yes [id number] - PHQ-9 Billing: Yes Source: Developed by Drs. Francis Palacios, Alexandria Andre, Chintan Posey and colleagues, with an educational brooke from [employer]. Thrive Questionnaire Date Thrive assessed: 12/27/23 I am a: Patient What is your living situation today?: I have a steady place to live Within the past 12 months, did the food you bought not last and you didn't have the money to get more?: Never true Within the past 12 months, did you worry whether your food would run out before you got money to buy more?: Never true Do you have trouble paying for medicines?: I choose not to answer this question Do you have trouble getting transportation to medical appointments?: No Do you have trouble paying your heating and electricity bill?: I choose not to answer this question Do you have trouble taking care of your child, family member or friend?: No Do you have trouble with day-to-day activities such as bathing, preparing meals, shopping, managing finances, etc.?: No Are you currently unemployed and looking for a job?: No Are you interested in more education?: Yes Please select the resources that you would like help with: None Currently or been in a relationship where the following occur: No concerns reported THRIVE Score: 0 AUDIT C Alcohol Use Questionnaire (AUDIT-C) 1. How often do you have a drink containing alcohol?: Never Total Score: 0 CHAR-7 AMB Questionnaire CHAR-7 Date CHAR - 7 assessed: 05/13/25 Feeling nervous, anxious, or on edge: 0 = Not at all Not being able to stop or control worryin = Not at all Worrying too much about different things: 1 = Several days Trouble relaxin = Several days Being so restless that it is hard to sit still: 0 = Not at all Becoming easily annoyed or irritable: 0 = Not at all Feeling afraid as if something awful might happen: 0 = Not at all Total CHAR-7 score (0-4 normal; 5-9 mild; 10-14 moderate; 15-21 severe): 2 Source: Developed by Drs. Francis Palacios, Alexandria Andre, Chintan Posey and colleagues, with an educational brooke from [employer]. Physical exam (Primary Care) Vital Signs: Last Vital Signs Pulse 66 05/13/25 11:02 Resp 16 05/13/25 11:02 BP 104/70 05/13/25 11:02 Pulse Ox 99 05/13/25 11:02 Oxygen Delivery Method Room Air 05/13/25 11:02 Tobacco/Smoking Status: Tobacco use Status Tobacco use date assessed 05/13/25 05/13/25 11:05 Patient Tobacco Use Status Never used Tobacco 05/13/25 10:57 e-Cigarette/Vaping Use Never Used 05/13/25 10:57 PHQ-9: PHQ-9 Score PHQ-9: Total score 5 05/13/25 11:05 Depression Screening Interpretation: Negative Thrive Assessment: Date of Thrive Assessment Date Thrive assessed 12/27/23 05/13/25 10:57 Currently or been in a relationship where the following occur: No concerns reported Coding Level of Care Code Est Pt Level 4 (86961) Diagnoses Spontaneous estephania-acoustic emission tinnitus of both ears H93.13 Allergies T78.40XA Dyslipidemia E78.5 Migraines G43.909 Additional Codes PHQ-9 - 80014 - PHQ-9 Billing: Yes ([id number]) Assessment & Plan Assessment & Plan (1) Spontaneous estephania-acoustic emission tinnitus of both ears: Comment: noted after dental procedure on 03/16/2025 Code(s): H93.13 - Tinnitus, bilateral Category: Medical (2) Allergies: Code(s): T78.40XA - Allergy, unspecified, initial encounter Category: Medical (3) Dyslipidemia: Code(s): E78.5 - Hyperlipidemia, unspecified Category: Medical (4) Migraines: Code(s): G43.909 - Migraine, unspecified, not intractable, without status migrainosus Category: Medical Plan . Orders: Orders Comprehensive [place]. Panel Fast Today E78.5 - Hyperlipidemia, unspecified Lipid Panel Today E78.5 - Hyperlipidemia, unspecified Referrals Osteopathic Medicine Referral T78.40XA - Allergy, unspecified, initial encounter Cologuard Test Z12.11 - Encounter for screening for malignant neoplasm of colon, Z12.12 - Encounter for screening for malignant neoplasm of rectum Ear/Nose/Throat Referral H93.13 - Tinnitus, bilateral Medications: New hydrocortisone 2.5% (Anusol-HC) 1 appl SC BID-QID PRN 30 grams 0RF hemorrhoids
[2025-05-13 11:02] VITALS: BP 104/70; PULSE 66; RESP 16; O2SAT 99
== END 2025-05-13 12:56 | disposition home or self-care (01) ==
LOC: HO.HMCC 10:53
PROVIDERS: PCP Nurse Practitioner Family; Visit Provider Nurse Practitioner Family
DX: H93.13 Tinnitus, bilateral (principal); T78.40XA Allergy, unspecified, initial encounter; E78.5 Hyperlipidemia, unspecified; G43.909 Migraine, unspecified, not intractable, without status migrainosus

== ENCOUNTER → 2025-05-13 10:52 | Outpatient (BNVA) | payer BC, SELFPAY | PROVIDERS: PCP Nurse Practitioner Family; Visit Provider Nurse Practitioner Family | DX: H93.13 Tinnitus, bilateral (principal); E78.5 Hyperlipidemia, unspecified; T78.40XA Allergy, unspecified, initial encounter; G43.909 Migraine, unspecified, not intractable, without status migrainosus; Z88.1 Allergy status to other antibiotic agents; Z91.018 Allergy to other foods; Z98.890 Other specified postprocedural states; Z13.31 Encounter for screening for depression; Z12.11 Encounter for screening for malignant neoplasm of colon; Z12.12 Encounter for screening for malignant neoplasm of rectum | CPT/HCPCS: 96127 ==